=== PATIENT | female | born 1980 | race Caucasian/White ===

== ENCOUNTER 2018-08-21 22:10 | Inpatient (IN) | payer MEDICARE, MEDICAID ==
[2018-08-21] MEDS ORDERED: Ondansetron 4 MG/2 ML SDV IVPUSH ONE (22:34)
[2018-08-21] MEDS ORDERED: Sodium Chloride 0.9% 1,000 ML IV ONE (22:34)
[2018-08-21] MEDS ORDERED: HYDROmorphone 1 MG/ML Syringe IVPUSH ONE (22:34)
[2018-08-21] MEDS ORDERED: Ibuprofen 600 MG Tab PO ONE (22:39)
--- NOTE | 2018-08-21 22:51 | EDM.PDOC ---
ED HPI GENERAL MEDICAL PROBLEM - General Chief Complaint: General Stated Complaint: FEVER Time Seen by Provider: 08/21/18 22:33 Source of Information: Reports: Patient, EMS, Provider History Limitations: Reports: No Limitations - History of Present Illness INITIAL COMMENTS - FREE TEXT/NARRATIVE: Patient is a 38-year-old female who resides at [facility] and presents to the emergency Department this evening via EMS secondary to fever and abdominal pain. Per patient, she says that abdominal pain and fever has been on and off for 3 days. Patient has an indwelling suprapubic catheter secondary to paraplegic condition and nurse's notes show that urine was dark in color and cloudy earlier today. I discussed case with Trish Cardenas, nurse practitioner at [facility] for transfer to the ER and for continuity of care. Patient denies chest pain, shortness of breath, or bowel changes. Onset: Gradual Onset Date: 08/18/18 Duration: Day(s): Location: Reports: Abdomen Quality: Reports: Ache Severity: Mild Improves with: Reports: None Worsens with: Reports: None Associated Symptoms: Reports: Fever/Chills, Nausea/Vomiting Treatments FENDER REPAIRER: Reports: Acetaminophen Generalized Pain Score (Numeric/FACES): 7 - Related Data Allergies Allergy/AdvReac Type Severity Reaction Status Date / Time contrast dye Allergy Cannot Uncoded 08/21/18 23:04 Remember Home Meds: Home Meds fentaNYL [Fentanyl] 25 patch IDERM ASDIRECTED 11/05/16 [History] Ciprofloxacin HCl [Cipro] 500 mg PO BID 6 Days #12 tablet 12/05/17 [Rx] Nitrofurantoin Monohyd/M-Cryst [Macrobid 100 mg Capsule] 100 mg PO BID 6 Days # 12 capsule 01/03/18 [Rx] Past Medical History Gastrointestinal History: Reports: GERD, Hemorrhoids, Hepatitis, Other (See Below) Other Gastrointestinal History: neurogenic bowel, Hepatitis C Genitourinary History: Reports: Other (See Below) Other Genitourinary History: SP cath. neuromuscular dysfunction of bladder Musculoskeletal History: Reports: Other (See Below) Other Musculoskeletal History: paraplegia Neurological History: Reports: Other (See Below) Other Neuro History: Paraplegic Psychiatric History: Reports: ADHD, Anxiety, PTSD, Schizophrenia, Other (See Below) Other Psychiatric History: personality disorder Endocrine/Metabolic History: Reports: Diabetes, Type II, Obesity/BMI 30+ - Infectious Disease History Infectious Disease History: Reports: Hepatitis C - Past Surgical History Female Surgical History: Reports: Suprapubic Catheter Placement ED ROS GENERAL - Review of Systems Review Of Systems: ROS reveals no pertinent complaints other than HPI. Constitutional: Reports: Fever, Chills HEENT: Reports: No Symptoms Respiratory: Reports: No Symptoms Cardiovascular: Reports: No Symptoms Endocrine: Reports: No Symptoms GI/Abdominal: Reports: Abdominal Pain : Reports: Hematuria Musculoskeletal: Reports: No Symptoms Skin: Reports: No Symptoms Neurological: Reports: No Symptoms Psychiatric: Reports: No Symptoms Hematologic/Lymphatic: Reports: No Symptoms Immunologic: Reports: No Symptoms ED EXAM, GI/ABD - Physical Exam Exam: See Below Exam Limited By: No Limitations General Appearance: Alert, WD/WN, No Apparent Distress Throat/Mouth: Normal Inspection, Normal Oropharynx, No Airway Compromise Head: Atraumatic, Normocephalic Neck: Normal Inspection Respiratory/Chest: No Respiratory Distress, Lungs Clear, Normal Breath Sounds, No Accessory Muscle Use, Chest Non-Tender Cardiovascular: Regular Rate, Rhythm, No Murmur GI/Abdominal Exam: Normal Bowel Sounds, No Abnormal Bruit, Distended (Mildly), Tender (Suprapubic), Other (Has suprapubic catheter). No: Guarding, Rigid, Rebound Back Exam: Paraspinal Tenderness (Chronic nature) Extremities: Other (Patient is a paraplegic) Neurological: Alert, Oriented, Normal Cognition Psychiatric: Normal Affect, Normal Mood Skin Exam: Warm, Dry, Intact, Normal Color, No Rash Lymphatic: No Adenopathy Course - Vital Signs Last Recorded V/S: Last Vital Signs Temp 101.5 F H 08/21/18 22:45 Pulse 91 08/21/18 23:36 Resp 16 08/21/18 23:36 BP 126/50 L 08/21/18 23:36 Pulse Ox 97 08/21/18 23:15 - Orders/Labs/Meds Orders: Active Orders 24 hr Category Date Time Status Abdomen Pelvis w Cont [CT] Stat Exams 08/21/18 23:14 Ordered CULTURE URINE [RM] Stat Lab 08/21/18 22:55 Received Labs: Laboratory Tests 08/21/18 08/21/18 08/21/18 Range/Units 22:27 22:27 22:27 WBC 18.51 H (5.00-10.00) 10^3/uL RBC 4.24 (3.80-5.50) 10^6/uL Hgb 12.4 (12.0-16.0) g/dL Hct 38.6 (37.0-47.0) % MCV 91.0 (82.0-92.0) fL MCH 29.2 (27.0-31.0) pg MCHC 32.1 (32.0-36.0) g/dL RDW 14.2 (11.5-14.5) % Plt Count 256 (150-400) 10^3/uL MPV 10.0 (7.4-10.4) fL Immature Gran % (Auto) 0.3 (0.0-5.0) % Neut % (Auto) 84.3 H (50.0-70.0) % Lymph % (Auto) 7.6 L (20.0-40.0) % Swift % (Auto) 7.2 (2.0-8.0) % Eos % (Auto) 0.5 L (1.0-3.0) % Baso % (Auto) 0.1 (0.0-1.0) % Immature Gran # (Auto) 0.06 (0.00-0.50) 10^3/uL Neut # (Auto) 15.59 H (2.50-7.00) 10^3/uL Lymph # (Auto) 1.41 (1.00-4.00) 10^3/uL Swift # (Auto) 1.34 H (0.10-0.80) 10^3/uL Eos # (Auto) 0.09 L (0.10-0.30) 10^3/uL Baso # (Auto) 0.02 (0.00-0.10) 10^3/uL Sodium 134 L (136-145) mmol/L Potassium 4.1 (3.3-5.3) mmol/L Chloride 98 (98-115) mmol/L Carbon Dioxide 27.1 (21.0-32.0) mmol/L Anion Gap 13.0 (5-15) mmol/L BUN 10 (6-25) mg/dL Creatinine 0.96 (0.51-1.17) mg/dL Est Cr Clr Drug Dosing TNP Estimated GFR (MDRD) > 60 mL/min Glucose 165 H (75 - 99) mg/dL Lactic Acid 1.5 (0.4-2.0) mmol/L Calcium 8.8 (8.7-10.3) mg/dL Total Bilirubin 0.3 (0.2-1.0) mg/dL AST 9 L (15-37) U/L ALT 15 (12-78) U/L Alkaline Phosphatase 50 (46-116) IU/L Total Protein 7.5 (6.4-8.2) g/dL Albumin 2.74 L (3.00-4.80) g/dL Specimen Type Urine Color (YELLOW) Urine Appearance (CLEAR) Urine pH (5.0-9.0) Ur Specific Fowler (1.005-1.030) Urine Protein (NEGATIVE) mg/dL Urine Glucose (UA) (NEGATIVE) mg/dL Urine Ketones (NEGATIVE) mg/dL Urine Occult Blood (NEGATIVE) Urine Nitrite (NEGATIVE) Urine Bilirubin (NEGATIVE) Urine Urobilinogen (0.2-1.0) E.U./dL Ur Leukocyte Esterase (NEGATIVE) Urine RBC (0-5) /HPF Urine WBC (0-5) /HPF Amorphous Sediment (0/HPF) /HPF Urine Bacteria (NONE TO FEW) /HPF 08/21/18 Range/Units 22:55 WBC (5.00-10.00) 10^3/uL RBC (3.80-5.50) 10^6/uL Hgb (12.0-16.0) g/dL Hct (37.0-47.0) % MCV (82.0-92.0) fL MCH (27.0-31.0) pg MCHC (32.0-36.0) g/dL RDW (11.5-14.5) % Plt Count (150-400) 10^3/uL MPV (7.4-10.4) fL Immature Gran % (Auto) (0.0-5.0) % Neut % (Auto) (50.0-70.0) % Lymph % (Auto) (20.0-40.0) % Swift % (Auto) (2.0-8.0) % Eos % (Auto) (1.0-3.0) % Baso % (Auto) (0.0-1.0) % Immature Gran # (Auto) (0.00-0.50) 10^3/uL Neut # (Auto) (2.50-7.00) 10^3/uL Lymph # (Auto) (1.00-4.00) 10^3/uL Swift # (Auto) (0.10-0.80) 10^3/uL Eos # (Auto) (0.10-0.30) 10^3/uL Baso # (Auto) (0.00-0.10) 10^3/uL Sodium (136-145) mmol/L Potassium (3.3-5.3) mmol/L Chloride (98-115) mmol/L Carbon Dioxide (21.0-32.0) mmol/L Anion Gap (5-15) mmol/L BUN (6-25) mg/dL Creatinine (0.51-1.17) mg/dL Est Cr Clr Drug Dosing Estimated GFR (MDRD) mL/min Glucose (75 - 99) mg/dL Lactic Acid (0.4-2.0) mmol/L Calcium (8.7-10.3) mg/dL Total Bilirubin (0.2-1.0) mg/dL AST (15-37) U/L ALT (12-78) U/L Alkaline Phosphatase (46-116) IU/L Total Protein (6.4-8.2) g/dL Albumin (3.00-4.80) g/dL Specimen Type Urinsp Urine Color Light yellow (YELLOW) Urine Appearance Cloudy H (CLEAR) Urine pH 8.5 (5.0-9.0) Ur Specific Fowler 1.015 (1.005-1.030) Urine Protein >=300 H (NEGATIVE) mg/dL Urine Glucose (UA) Negative (NEGATIVE) mg/dL Urine Ketones Negative (NEGATIVE) mg/dL Urine Occult Blood Large H (NEGATIVE) Urine Nitrite Positive H (NEGATIVE) Urine Bilirubin Negative (NEGATIVE) Urine Urobilinogen 0.2 (0.2-1.0) E.U./dL Ur Leukocyte Esterase Large H (NEGATIVE) Urine RBC 30-40 H (0-5) /HPF Urine WBC Semi-packed (0-5) /HPF Amorphous Sediment Many H (0/HPF) /HPF Urine Bacteria Many H (NONE TO FEW) /HPF Meds: Medications Discontinued Medications Generic Name Dose Route Start Last Admin Trade Name Torin PRN Reason Stop Dose Admin Hydromorphone HCl 0.5 mg 08/21/18 22:34 08/21/18 22:47 Dilaudid IVPUSH 08/21/18 22:35 0.5 mg ONETIME ONE Administration Sodium Chloride 1,000 mls @ 999 mls/hr 08/21/18 22:34 08/21/18 22:47 Normal Saline IV 08/21/18 23:34 999 mls/hr .BOLUS ONE Administration Ibuprofen 600 mg 08/21/18 22:39 08/21/18 22:45 Motrin PO 08/21/18 22:40 600 mg ONETIME ONE Administration Ondansetron HCl 4 mg 08/21/18 22:34 08/21/18 23:06 Zofran IVPUSH 08/21/18 22:35 4 mg ONETIME ONE Administration - Radiology Interpretation Free Text/Narrative:: CT abdomen and pelvis without contrast shows mildly dilated loops of small intestine, moderate distention of the colon, normal appendix, cystitis, nonobstructing bladder stones, mildly obstructed stone on the left renal pelvis, - Re-Assessments/Exams Free Text/Narrative Re-Assessment/Exam: 08/22/18 01:19 Patient resting comfortably, discomfort relieved. Discussed case with Trish Cardenas, nurse practitioner at [facility]. Patient will be admitted inpatient and followed. Patient given 1 g Rocephin IV. Departure - Departure Time of Disposition: 01:19 Disposition: Admitted As Inpatient 64 Condition: Fair Clinical Impression: UTI, Urinary tract infectious disease, Complicated UTI (urinary tract infection ), Kidney stone, Ileus - Discharge Information Referrals: Michelle Marcelo MD [Primary Care Provider] - Forms: ED Department Discharge - My Orders Last 24 Hours: My Active Orders 08/21/18 22:55 CULTURE URINE [RM] Stat 08/21/18 23:14 Abdomen Pelvis w Cont [CT] Stat - Assessment/Plan Last 24 Hours: My Active Orders 08/21/18 22:55 CULTURE URINE [RM] Stat 08/21/18 23:14 Abdomen Pelvis w Cont [CT] Stat Assessment:: UTI Plan: Admit inpatient to [facility]
[2018-08-21 23:01] LABS: SODIUM,NA 134 mmol/L (136-145)
[2018-08-21 23:02] LABS: CHLORIDE,CL 98 mmol/L (98-115)
[2018-08-22] MEDS ORDERED: cefTRIAXone 1 GM Vial IVPUSH ONE (01:14)
[2018-08-22] MEDS: Sodium Chloride 0.9% 1,000 ML IV SCH ×3 (02:46→19:18)
--- NOTE | 2018-08-22 08:40 | CT ---
[id number] CT/CT Abdomen Pelvis W IV EXAM: ABDOMEN AND PELVIS CT WITH CONTRAST INDICATION: Abdominal pain. COMPARISON: None. DISCUSSION: Suprapubic catheter. The urinary bladder appears thick-walled suggesting underlying cystitis, correlate with urinalysis. There are multiple large calculi in the bladder with a labor service representative stone measuring about 3.9 x 1.6 x 2.6 cm. There is mild to moderate dilation of both urinary collecting systems and within the left renal pelvis there is a 2.8 x 1.1 cm stone. This may partially obstruct, but evaluation for obstruction is somewhat limited given diffuse ureteral dilation. There are few additional small nonobstructing calculi in the lower pole of the left kidney. No right-sided collecting system calculi. Prominent colonic stool volume. Mild induration of the subcutaneous tissues along the upper aspect of the intragluteal cleft, correlate with evidence of cellulitis. Partially imaged bilateral posterior fusion in the thoracic spine. Mild pectus excavatum. The liver, gallbladder, spleen, pancreas, adrenal glands, small bowel and appendix are normal in appearance. No adenopathy or free air. Minimal free fluid in the pelvis may be physiologic. IMPRESSION: 1. The urinary bladder contains a suprapubic catheter and is mildly thick-walled, correlate with urinalysis to evaluate for cystitis. The bladder is filled by multiple large calculi and there is mild dilation of both urinary collecting systems. 2. 2.8 x 1.1 cm partially obstructing left renal pelvis calculus. Ervin Hines MD 08/22/18 0839 Thank you for allowing us to participate in the care of your patient.
[2018-08-22] MEDS ORDERED: Nicotine Polacrilex 4 MG Gum PO PRN (09:41)
[2018-08-22] MEDS ORDERED: buPROPion 300 MG Tab.ER PO SCH (09:45)
[2018-08-22] MEDS ORDERED: Zinc Oxide 20% Oint 56.7 GM Tube TOP SCH (10:15)
[2018-08-22] MEDS ORDERED: Gabapentin 100 MG Cap PO SCH ×4 (10:15→23:00)
[2018-08-22] MEDS ORDERED: Ondansetron 4 MG/2 ML SDV IVPUSH PRN (10:22)
[2018-08-22] MEDS ORDERED: Ibuprofen 600 MG Tab PO PRN (10:26)
[2018-08-22] MEDS ORDERED: GABAPENTIN 1200 MG PO SCH (10:45)
[2018-08-22] MEDS: LORazepam 0.5 MG Tab PO SCH ×4 (10:57→22:16)
[2018-08-22] MEDS: tiZANidine 4 MG Tab PO SCH ×3 (10:58→22:16)
[2018-08-22] MEDS ORDERED: Psyllium Husk Powder Sugar Free 5.85 GM Packet PO SCH (11:45)
[2018-08-22] MEDS ORDERED: buPROPion 150 MG Tab.SR PO SCH (12:00)
[2018-08-22] MEDS: Multivitamins with Minerals/Iron/Folic Acid/Lycopene Tab PO SCH (12:05)
[2018-08-22] MEDS: Lisinopril 5 MG Tab PO SCH (12:05)
[2018-08-22] MEDS: Ondansetron 4 MG Tab.DIS PO SCH (12:05)
[2018-08-22] MEDS: Tamsulosin 0.4 MG Cap.ER PO SCH (12:05)
--- NOTE | 2018-08-22 12:05 | PCM.HP ---
H&P History of Present Illness - General Date of Service: 08/22/18 Admit Problem/Dx: Admission Diagnosis/Problem Admission Diagnosis/Problem Cystitis Source of Information: Patient, M[facility] Records, Old Records, Provider, RN History Limitations: Reports: No Limitations - History of Present Illness Initial Comments - Free Text/Narative: This is a 38 year old female who resides at the [facility] in [place], [place] who developed a fever and low back pain about 3 days ago. [facility]ent[facility] reported fevers of low-grade up to 103 degrees F intermittently for the past 3 days. Patient has a suprapubic catheter in place due to being a paraplegia and was noted to have darker colored urine. She was transferred to the ED via ambulance for further evaluation. She was found to have a UTI and was admitted for further treatment and monitoring. Generalized Pain Score (Numeric/FACES): 3 - Related Data Allergies/Adverse Reactions: Allergies Allergy/AdvReac Type Severity Reaction Status Date / Time contrast dye Allergy Cannot Uncoded 08/21/18 23:04 Remember Home Medications: Home Meds Acetaminophen 650 mg PO Q4HR PRN 08/22/18 [History] Ascorbate Calcium [Vitamin C] 500 mg PO DAILY 08/22/18 [History] Bisacodyl [Biscolax] 1,025.97 mg PO DAILY 08/22/18 [History] Calcium Carbonate/Vitamin D3 [Calcium 600 + Vit D 200] 1 each PO BID 08/22/18 [ History] Cranberry 400 mg PO Q8HR 08/22/18 [History] Dextran 70/Hypromellose [Artificial Tears] 1 each OP DAILY 08/22/18 [History] Diclofenac Sodium [Voltaren 1%] 1 applic TP QID 08/22/18 [History] Gabapentin [Neurontin] 1,200 mg PO BID 08/22/18 [History] Gabapentin [Neurontin] 800 mg PO BID 08/22/18 [History] LORazepam 0.25 mg PO BEDTIME 08/22/18 [History] LORazepam [Ativan] 0.5 mg PO Q8HR 08/22/18 [History] Lisinopril [Prinivil] 2.5 mg PO DAILY 08/22/18 [History] Methyl Salicylate/Menthol [Muscle Rub] 85 gm TP ASDIRECTED PRN 08/22/18 [History ] Methylcellulose [Fiber] 500 mg PO DAILY 08/22/18 [History] Multivit with Iron,Minerals [Spectravite Senior] 1 tab PO DAILY 08/22/18 [ History] Nicotine Polacrilex [Nicorette] 4 mg BC Q6HR PRN 08/22/18 [History] Omeprazole 20 mg PO DAILY 08/22/18 [History] Ondansetron HCl [Zofran] 4 mg PO DAILY 08/22/18 [History] Sennosides [Senna] 25.8 mg PO DAILY 08/22/18 [History] Sertraline [Zoloft] 150 mg PO DAILY 08/22/18 [History] Zinc Oxide 56.7 gm TP WEEKLY 08/22/18 [History] atorvaSTATin [Lipitor] 40 mg PO DAILY 08/22/18 [History] buPROPion HCl [Wellbutrin Xl] 300 mg PO DAILY 08/22/18 [History] fentaNYL [Duragesic] 150 mg TOP ASDIRECTED 08/22/18 [History] metFORMIN [Glucophage] 500 mg PO BIDMEALS 08/22/18 [History] tiZANidine [Zanaflex] 4 mg PO Q8H 08/22/18 [History] Past Medical History Gastrointestinal History: Reports: GERD, Hemorrhoids, Hepatitis, Other (See Below) Other Gastrointestinal History: neurogenic bowel, Hepatitis C Genitourinary History: Reports: Other (See Below) Other Genitourinary History: SP cath. neuromuscular dysfunction of bladder Musculoskeletal History: Reports: Other (See Below) Other Musculoskeletal History: paraplegia Neurological History: Reports: Other (See Below) Other Neuro History: Paraplegic Psychiatric History: Reports: ADHD, Anxiety, PTSD, Schizophrenia, Other (See Below) Other Psychiatric History: personality disorder Endocrine/Metabolic History: Reports: Diabetes, Type II, Obesity/BMI 30+ - Infectious Disease History Infectious Disease History: Reports: Hepatitis C - Past Surgical History Female Surgical History: Reports: Suprapubic Catheter Placement Social & Family History - Family History : Reports: Renal Calculus (sister) Oncologic: Reports: Breast (maternal aunt), Prostate (maternal grandfather and maternal uncle) - Tobacco Use Smoking Status *Q: Former Smoker Used Tobacco, but Quit: Yes Month/Year Tobacco Last Used: 2011 Tobacco Use Comment: Pt quit smoking about 7 years ago and uses nicotine gum several times per day currently. Second Hand Smoke Exposure: No - Caffeine Use Caffeine Use: Reports: Coffee, Soda, Tea - Recreational Drug Use Recreational Drug Use: No H&P Review of Systems - Review of Systems: Review Of Systems: See Below General: Reports: Fever, Chills, Malaise, Weakness, Fatigue HEENT: Reports: Ear Pain, Headaches. Denies: Sinus Congestion, Sore Throat Pulmonary: Denies: Shortness of Breath, Cough Cardiovascular: Denies: Chest Pain, Edema Gastrointestinal: Reports: Abdominal Pain, Nausea. Denies: Constipation, Diarrhea, Vomiting Genitourinary: Reports: No Symptoms Musculoskeletal: Reports: Neck Pain, Back Pain (low back) Skin: Reports: Wound (left coccyx) Psychiatric: Reports: Anxiety Neurological: Reports: Headache. Denies: Dizziness Exam - Exam Exam: See Below - Vital Signs Vital Signs: Last Vital Signs Temp 97.5 F 08/22/18 06:59 Pulse 77 08/22/18 06:59 Resp 18 08/22/18 06:59 BP 93/52 L 08/22/18 06:59 Pulse Ox 96 08/22/18 06:59 Weight: 226 lb 3 oz - Exam Quality Assessment: Urinary Catheter (suprapubic-skin around site appears pink without erythema or drainage; yellow urine with sediment present). No: Supplemental Oxygen General: Alert, Oriented (x3), Cooperative, Mild Distress HEENT: Conjunctiva Clear, Hearing Intact, Mucosa Moist & Thomas, Nares Patent, Posterior Pharynx Clear, Pupils Equal, TMs Clear Neck: Supple, Trachea Midline. No: Lymphadenopathy Lungs: Clear to Auscultation, Normal Respiratory Effort Cardiovascular: Regular Rate, Regular Rhythm, Normal S1, Normal S2. No: Systolic Murmur, Diastolic Murmur GI/Abdominal Exam: Normal Bowel Sounds, Soft, Non-Tender, No Distention Extremities: No Pedal Edema Skin: Warm, Dry, Other (mild erythema noted to coccyx and left upper buttock, no open wounds) Neuro Extensive - Mental Status: Alert, Oriented x3, Normal Mood/Affect, Normal Cognition, Memory Intact Psychiatric: Alert, Normal Affect, Normal Mood - Patient Data Lab Results Last 24 hrs: Laboratory Results - last 24 hr 08/21/18 08/21/18 08/21/18 Range/Units 22:27 22:27 22:27 WBC 18.51 H (5.00-10.00) 10^3/uL RBC 4.24 (3.80-5.50) 10^6/uL Hgb 12.4 (12.0-16.0) g/dL Hct 38.6 (37.0-47.0) % MCV 91.0 (82.0-92.0) fL MCH 29.2 (27.0-31.0) pg MCHC 32.1 (32.0-36.0) g/dL RDW 14.2 (11.5-14.5) % Plt Count 256 (150-400) 10^3/uL MPV 10.0 (7.4-10.4) fL Immature Gran % (Auto) 0.3 (0.0-5.0) % Neut % (Auto) 84.3 H (50.0-70.0) % Lymph % (Auto) 7.6 L (20.0-40.0) % [place] % (Auto) 7.2 (2.0-8.0) % Eos % (Auto) 0.5 L (1.0-3.0) % Baso % (Auto) 0.1 (0.0-1.0) % Immature Gran # (Auto) 0.06 (0.00-0.50) 10^3/uL Neut # (Auto) 15.59 H (2.50-7.00) 10^3/uL Lymph # (Auto) 1.41 (1.00-4.00) 10^3/uL [place] # (Auto) 1.34 H (0.10-0.80) 10^3/uL Eos # (Auto) 0.09 L (0.10-0.30) 10^3/uL Baso # (Auto) 0.02 (0.00-0.10) 10^3/uL Sodium 134 L (136-145) mmol/L Potassium 4.1 (3.3-5.3) mmol/L Chloride 98 (98-115) mmol/L Carbon Dioxide 27.1 (21.0-32.0) mmol/L Anion Gap 13.0 (5-15) mmol/L BUN 10 (6-25) mg/dL Creatinine 0.96 (0.51-1.17) mg/dL Est Cr Clr Drug Dosing TNP Estimated GFR (MDRD) > 60 mL/min Glucose 165 H (75 - 99) mg/dL Lactic Acid 1.5 (0.4-2.0) mmol/L Calcium 8.8 (8.7-10.3) mg/dL Total Bilirubin 0.3 (0.2-1.0) mg/dL AST 9 L (15-37) U/L ALT 15 (12-78) U/L Alkaline Phosphatase 50 (46-116) IU/L Total Protein 7.5 (6.4-8.2) g/dL Albumin 2.74 L (3.00-4.80) g/dL Specimen Type Urine Color (YELLOW) Urine Appearance (CLEAR) Urine pH (5.0-9.0) Ur Specific [place] (1.005-1.030) Urine Protein (NEGATIVE) mg/dL Urine Glucose (UA) (NEGATIVE) mg/dL Urine Ketones (NEGATIVE) mg/dL Urine Occult Blood (NEGATIVE) Urine Nitrite (NEGATIVE) Urine Bilirubin (NEGATIVE) Urine Urobilinogen (0.2-1.0) E.U./dL Ur Leukocyte Esterase (NEGATIVE) Urine RBC (0-5) /HPF Urine WBC (0-5) /HPF Amorphous Sediment (0/HPF) /HPF Urine Bacteria (NONE TO FEW) /HPF 08/21/18 Range/Units 22:55 WBC (5.00-10.00) 10^3/uL RBC (3.80-5.50) 10^6/uL Hgb (12.0-16.0) g/dL Hct (37.0-47.0) % MCV (82.0-92.0) fL MCH (27.0-31.0) pg MCHC (32.0-36.0) g/dL RDW (11.5-14.5) % Plt Count (150-400) 10^3/uL MPV (7.4-10.4) fL Immature Gran % (Auto) (0.0-5.0) % Neut % (Auto) (50.0-70.0) % Lymph % (Auto) (20.0-40.0) % [place] % (Auto) (2.0-8.0) % Eos % (Auto) (1.0-3.0) % Baso % (Auto) (0.0-1.0) % Immature Gran # (Auto) (0.00-0.50) 10^3/uL Neut # (Auto) (2.50-7.00) 10^3/uL Lymph # (Auto) (1.00-4.00) 10^3/uL [place] # (Auto) (0.10-0.80) 10^3/uL Eos # (Auto) (0.10-0.30) 10^3/uL Baso # (Auto) (0.00-0.10) 10^3/uL Sodium (136-145) mmol/L Potassium (3.3-5.3) mmol/L Chloride (98-115) mmol/L Carbon Dioxide (21.0-32.0) mmol/L Anion Gap (5-15) mmol/L BUN (6-25) mg/dL Creatinine (0.51-1.17) mg/dL Est Cr Clr Drug Dosing Estimated GFR (MDRD) mL/min Glucose (75 - 99) mg/dL Lactic Acid (0.4-2.0) mmol/L Calcium (8.7-10.3) mg/dL Total Bilirubin (0.2-1.0) mg/dL AST (15-37) U/L ALT (12-78) U/L Alkaline Phosphatase (46-116) IU/L Total Protein (6.4-8.2) g/dL Albumin (3.00-4.80) g/dL Specimen Type Urinsp Urine Color Light yellow (YELLOW) Urine Appearance Cloudy H (CLEAR) Urine pH 8.5 (5.0-9.0) Ur Specific [place] 1.015 (1.005-1.030) Urine Protein >=300 H (NEGATIVE) mg/dL Urine Glucose (UA) Negative (NEGATIVE) mg/dL Urine Ketones Negative (NEGATIVE) mg/dL Urine Occult Blood Large H (NEGATIVE) Urine Nitrite Positive H (NEGATIVE) Urine Bilirubin Negative (NEGATIVE) Urine Urobilinogen 0.2 (0.2-1.0) E.U./dL Ur Leukocyte Esterase Large H (NEGATIVE) Urine RBC 30-40 H (0-5) /HPF Urine WBC Semi-packed (0-5) /HPF Amorphous Sediment Many H (0/HPF) /HPF Urine Bacteria Many H (NONE TO FEW) /HPF Result Diagrams: 08/21/18 22:27 08/21/18 22:27 Roddy Results Last 24 hrs: Microbiology 08/21/18 22:55 Urine Culture - Final Urine, Suprapubic Bladder Asp Problem List Initiated/Reviewed/Updated: Yes Orders Last 24hrs: Active Orders 24 hr Category Date Time Status Patient Status [ADT] Routine ADT 08/22/18 01:17 Ordered Accu Check [Blood Glucose Check, Bedside] [RC] BIDAC Care 08/22/18 11:31 Active Communication Order [RC] DAILY Care 08/22/18 11:43 Active Intake and Output [RC] 1400,2200,0600 Care 08/22/18 09:41 Active Oxygen Therapy [RC] PRN Care 08/22/18 01:17 Active Up With Assistance [RC] ASDIRECTED Care 08/22/18 09:46 Active VTE/DVT Education [RC] PER UNIT ROUTINE Care 08/22/18 01:17 Active Vital Signs [RC] 0300,0700,1100,1500,1900,2300 Care 08/22/18 01:17 Active ADA Diabetic [[place] [employer] Diet] [DIET Diet 08/22/18 Breakfast Active ] BMP [BASIC METABOLIC PANEL,BMP] [CHEM] AM Lab 08/23/18 05:11 Ordered CBC WITH AUTO DIFF [HEME] AM Lab 08/23/18 05:11 Ordered URINE ID [MREF] Stat Lab 08/21/18 22:55 Received Acetaminophen [Tylenol] Med 08/22/18 09:41 Active 650 mg PO Q4H PRN Ascorbic Acid [Vitamin C] Med 08/22/18 10:00 Active 500 mg PO DAILY Calcium Citrate/Vitamin D3 [Calcium Citrate + D] Med 08/22/18 10:00 Active 2 tab PO BID Carboxymethylcellulose Sodium [Refresh Tears 0.5%] Med 08/22/18 10:15 Active 0 ml EYEBOTH DAILY Diclofenac Sodium [Voltaren 1% Gel] Med 08/22/18 13:00 Active 0 gm TOP QID Docusate Sodium/Sennosides [Senna Plus] Med 08/22/18 10:00 Active 3 tab PO DAILY FA/Lycopene/Lut/MV,Ca,Iron,Min [Centrum] Med 08/22/18 10:15 Active 1 tab PO DAILY Gabapentin [Neurontin] Med 08/22/18 16:00 Active 1,200 mg PO BID@1600,2000 Gabapentin [Neurontin] Med 08/22/18 23:00 Active 800 mg PO BID@0700,2300 Ibuprofen [Motrin] Med 08/22/18 10:26 Active 600 mg PO Q6H PRN LORazepam [Ativan] Med 08/22/18 21:00 Active 0.25 mg PO BEDTIME LORazepam [Ativan] Med 08/22/18 09:41 Active 0.5 mg PO Q8HR Lisinopril [Prinivil] Med 08/22/18 10:00 Active 2.5 mg PO DAILY Menthol/Methyl Salicylate [Bengay Greaseless Cream] Med 08/22/18 09:41 Active 0 gm TOP ASDIRECTED PRN Omeprazole Med 08/22/18 09:45 Active 20 mg PO ACBREAKFAST Ondansetron [Zofran ODT] Med 08/22/18 10:00 Active 4 mg PO DAILY Ondansetron [Zofran] Med 08/22/18 10:22 Active 4 mg IVPUSH Q6H PRN Sertraline [Zoloft] Med 08/22/18 10:00 Active 150 mg PO DAILY Sodium Chloride 0.9% [Normal Saline] 1,000 ml Med 08/22/18 01:30 Active IV ASDIRECTED Tamsulosin [Flomax] Med 08/22/18 11:30 Active 0.4 mg PO DAILY Zinc Oxide Med 08/22/18 10:15 Active 0 gm TOP Q7D atorvaSTATin [Lipitor] Med 08/22/18 09:45 Active 40 mg PO DAILY buPROPion [Wellbutrin XL] Med 08/22/18 09:45 Active 300 mg PO DAILY cefTRIAXone [Rocephin] Med 08/23/18 01:00 Active 1 gm IVPUSH Q24H tiZANidine [Zanaflex] Med 08/22/18 09:45 Active 4 mg PO Q8HR Code Status [Resuscitation Status] Routine Resus Stat 08/22/18 10:23 Ordered Medication Orders Acetaminophen (Tylenol) 650 mg PO Q4H PRN PRN Reason: Pain Artificial Tears (Refresh Tears 0.5%) 0 ml EYEBOTH DAILY [facility] Ascorbic Acid (Vitamin C) 500 mg PO DAILY [facility] Atorvastatin Calcium (Lipitor) 40 mg PO DAILY [facility] Bupropion HCl (Wellbutrin Xl) 300 mg PO DAILY [facility] Calcium Citrate (Calcium Citrate + D) 2 tab PO BID [facility] Ceftriaxone Sodium (Rocephin) 1 gm IVPUSH Q24H [facility] Diclofenac Sodium (Voltaren 1% Gel) 0 gm TOP QID [facility] Gabapentin (Neurontin) 800 mg PO BID@0700,2300 [facility] Gabapentin (Neurontin) 1,200 mg PO BID@1600,2000 [facility] Sodium Chloride (Normal Saline) 1,000 mls @ 125 mls/hr IV ASDIRECTED [facility] Last Admin: 08/22/18 11:11 Dose: 125 mls/hr Infusion: 08/22/18 10:46 Dose: 125 mls/hr Admin: 08/22/18 02:46 Dose: 125 mls/hr Ibuprofen (Motrin) 600 mg PO Q6H PRN PRN Reason: fever/pain Lisinopril (Prinivil) 2.5 mg PO DAILY [facility] Lorazepam (Ativan) 0.5 mg PO Q8HR [facility] Last Admin: 08/22/18 10:57 Dose: Lorazepam (Ativan) 0.25 mg PO BEDTIME [facility] Methyl Salicylate (Bengay Greaseless Cream) 0 gm TOP ASDIRECTED PRN PRN Reason: Pain Multi-Ingred Cream/Lotion/Oil/Oint (Zinc Oxide) 0 gm TOP Q7D [facility] Multivitamins/Minerals (Centrum) 1 tab PO DAILY [facility] Omeprazole (Omeprazole) 20 mg PO ACBREAKFAST [facility] Ondansetron HCl (Zofran Odt) 4 mg PO DAILY [facility] Ondansetron HCl (Zofran) 4 mg IVPUSH Q6H PRN PRN Reason: Nausea/Vomiting Last Admin: 08/22/18 11:02 Dose: 4 mg Senna/Docusate Sodium (Senna Plus) 3 tab PO DAILY [facility] Sertraline HCl (Zoloft) 150 mg PO DAILY [facility] Tamsulosin HCl (Flomax) 0.4 mg PO DAILY [facility] Stop: 08/26/18 11:31 Tizanidine HCl (Zanaflex) 4 mg PO Q8HR [facility] Last Admin: 08/22/18 10:58 Dose: Assessment/Plan Comment:: HPI: This is a 38 year old female who resides at the [facility] in [place], [place] who developed a fever and low back pain about 3 days ago. [facility] reported fevers of low-grade up to 103 degrees F intermittently for the past 3 days. Patient has a suprapubic catheter in place due to being a paraplegia and was noted to have darker colored urine. She was transferred to the ED via ambulance for further evaluation. She was found to have a UTI and was admitted for further treatment and monitoring. Pertinent ED work-up: WBC 18.5 with neutrophilia Na 134 Lactic acid 1.5 UA positive for nitrites, large leukocytes, and many bacteria Urine culture pending CT abd/pelvis: mildly thick walled urinary bladder representing cystitis; bladder filled with multiple large calculi with mild dilation of both urinary collecting systems; 2.8 x 1.1 cm partially obstructing left renal pelvis calculi NS 1 liter bolus Rocephin 1 gm IV x 1 Ibuprofen po and zofran IV x 1 Further work-up upon admission: Medication reconciliation Code status clarification. Patient elects to be a DNR. Primary assessment/plan: Acute cystitis. qSOFA 0. Urine culture showing gram + cocci and gram - rods. Continue rocephin 1 gm IV daily. NS at 125 mL/hr. CBC in AM. Nephrolithiasis of left kidney and bladder. 2.8 x 1.1 cm partially obstructing calculi in left renal pelvis with multiple large calculi in bladder. Creatinine 0.96. Flomax 0.4 mg daily to help pass the left renal stone. IVFs. She will need urology follow-up as outpatient. BMP in AM. Suprapubic catheter in place. Irrigate with NS 250 mL daily. Has had to have IR replace this in the past. Secondary assessment/plan: T2DM. Hold metformin due to CT scan. Accuchecks BID. ADA diet. Continue lisinopril 2.5 mg daily. A1c 5.2 (07/2018). HLD. LDL 55 (07/2018). Continue lipitor. Paraplegia, from the chest down. Rods in place from T1 to T10 due to suicide attempt about 6 years ago. Morbid obesity. Former smoker. [facility] used nicotine replacement gum [facility] at the [facility]. Will check if this is available in house and if not will apply nicotine patch. Depression. Continue wellbutrin and zoloft. Anxiety. Continue ativan. Schizophrenia. Followed by Dr. Brooks, psychiatrist, at [facility]. PTSD. History of drug/alcohol abuse. 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 Neuropathic pain. On gabapentin, tapering dose of fentanyl patch and tizanadine. Fibromyalgia syndrome. Followed by pain clinic. Thoracic back pain. Myofascial pain along incision. Reflux esophagitis. Continue omeprazole. Dry eyes. Refresh drops daily. DVT prophylaxis. Score 3. Lovenox 40 mg SQ daily. Overall plan: Continue with IV rocephin and IV fluids. Monitor hemodynamic status. Perform catheter/bladder irrigation. Repeat labs in AM.
[2018-08-22] MEDS: Ascorbic Acid 500 MG Tab PO SCH (12:06)
[2018-08-22] MEDS: Calcium Citrate/Vitamin D3 315 MG-250 Unit Tab PO SCH ×2 (12:06→20:52)
[2018-08-22] MEDS: Omeprazole 20 MG Cap.CR PO SCH (12:06)
[2018-08-22] MEDS: Sertraline 50 MG Tab PO SCH (12:06)
[2018-08-22] MEDS: atorvaSTATin 40 MG Tab PO SCH (12:06)
[2018-08-22] MEDS: Carboxymethylcellulose Sodium 0.5% Ophth Soln 15 ML Bottle EYEBOTH SCH (12:07)
[2018-08-22] MEDS: Enoxaparin 40 MG/0.4 ML Syringe SUBCUT SCH (13:27)
[2018-08-22] MEDS: Gabapentin 100 MG Cap PO SCH (13:28)
[2018-08-22] MEDS: Gabapentin 300 MG Cap PO SCH ×3 (13:28→19:17)
[2018-08-22] MEDS: buPROPion 150 MG Tab.SR PO SCH ×2 (13:28→20:54)
[2018-08-22] MEDS: Diclofenac Sodium 1% Gel 100 GM Tube TOP SCH ×3 (13:29→20:57)
[2018-08-22] MEDS: Nicotine 7 MG/24 Hr Patch TRDERM SCH (13:35)
[2018-08-22] MEDS: Acetaminophen 325 MG Tab PO PRN (13:41)
[2018-08-22] MEDS ORDERED: Cranberry Ext/C/L. Sporogenes Tab PO SCH (14:00)
[2018-08-22] MEDS ORDERED: Morphine 2 MG/ML Syringe IVPUSH STA (15:22)
[2018-08-22] MEDS ORDERED: fentaNYL 100 MCG/HR Transdermal Patch TRDERM SCH (16:00)
[2018-08-22] MEDS ORDERED: Gabapentin 300 MG Cap PO SCH ×2 (16:00→21:00)
[2018-08-22] MEDS ORDERED: fentaNYL 25 MCG/HR Transdermal Patch TRDERM SCH (16:15)
[2018-08-22] MEDS ORDERED: HYDROmorphone 1 MG/ML Syringe IVPUSH ONE (17:05)
[2018-08-23] MEDS: cefTRIAXone 1 GM Vial IVPUSH SCH (01:38)
[2018-08-23] MEDS: Sodium Chloride 0.9% 1,000 ML IV SCH (03:06)
[2018-08-23] MEDS: Ketorolac 30 MG/ML SDV IVPUSH PRN ×2 (03:09→12:12)
[2018-08-23] MEDS: METHYL SALICYLATE TOP PRN (03:31)
[2018-08-23] MEDS: MENTHOL TOP PRN (03:31)
[2018-08-23] MEDS: LORazepam 0.5 MG Tab PO SCH ×5 (05:55→21:45)
[2018-08-23] MEDS: tiZANidine 4 MG Tab PO SCH ×3 (05:56→21:09)
[2018-08-23] MEDS: Omeprazole 20 MG Cap.CR PO SCH (07:51)
[2018-08-23] MEDS: Gabapentin 300 MG Cap PO SCH ×4 (07:52→18:19)
[2018-08-23] MEDS: Gabapentin 100 MG Cap PO SCH ×2 (07:52→12:06)
[2018-08-23 07:59] LABS: ANION GAP 12.9 mmol/L (5-15); CHLORIDE,CL 105 mmol/L (98-115); SODIUM,NA 141 mmol/L (136-145)
[2018-08-23] MEDS: Multivitamins with Minerals/Iron/Folic Acid/Lycopene Tab PO SCH (08:00)
[2018-08-23] MEDS: Ondansetron 4 MG Tab.DIS PO SCH (08:00)
[2018-08-23] MEDS: atorvaSTATin 40 MG Tab PO SCH (08:00)
[2018-08-23] MEDS: Ascorbic Acid 500 MG Tab PO SCH (08:00)
[2018-08-23] MEDS: Tamsulosin 0.4 MG Cap.ER PO SCH (08:00)
[2018-08-23] MEDS: Calcium Citrate/Vitamin D3 315 MG-250 Unit Tab PO SCH ×2 (08:01→21:08)
[2018-08-23] MEDS: Carboxymethylcellulose Sodium 0.5% Ophth Soln 15 ML Bottle EYEBOTH SCH (08:01)
[2018-08-23] MEDS: Nicotine 7 MG/24 Hr Patch TRDERM SCH (08:01)
[2018-08-23] MEDS: Lisinopril 5 MG Tab PO SCH (08:03)
[2018-08-23] MEDS: buPROPion 150 MG Tab.SR PO SCH ×2 (08:03→21:08)
[2018-08-23] MEDS: Sertraline 50 MG Tab PO SCH (08:09)
[2018-08-23] MEDS: Diclofenac Sodium 1% Gel 100 GM Tube TOP SCH ×4 (08:10→21:10)
--- NOTE | 2018-08-23 09:08 | PCM.PN ---
- General Info Date of Service: 08/23/18 Subjective Update: Patient eating breakfast in bed on rounds. States she didn't sleep well last night due to multiple reasons. Thinks she may have passed the left kidney stone as she felt a "scraping" down her left back late yesterday. She has had what was thought to be a kidney stone about 2 years ago, but was not evaluated further for it. Patient reports her pain is improved and is minimal today. Scheduled medications yesterday were a bit behind her normal times, which likely contributed to increased pain. Functional Status: Reports: Pain Controlled, Tolerating Diet. Denies: New Symptoms - Review of Systems General: Reports: Fatigue (did not sleep well last night), Malaise. Denies: Fever, Chills HEENT: Reports: Headaches (frontal, mild) Pulmonary: Denies: Shortness of Breath Cardiovascular: Denies: Chest Pain Gastrointestinal: Denies: Abdominal Pain, Constipation, Decreased Appetite, Diarrhea, Nausea, Vomiting Genitourinary: Reports: No Symptoms Musculoskeletal: Reports: Back Pain (mid-back) Neurological: Reports: Headache (frontal, mild). Denies: Trouble Speaking Psychiatric: Reports: No Symptoms - Patient Data Vitals - Most Recent: Last Vital Signs Temp 97.0 F 08/23/18 06:45 Pulse 68 08/23/18 06:45 Resp 20 08/23/18 06:45 BP 94/59 L 08/23/18 08:03 Pulse Ox 97 08/23/18 06:45 Weight - Most Recent: 226 lb 3 oz I&O - Last 24 Hours: Intake & Output 08/22/18 08/23/18 08/23/18 22:59 06:59 14:59 Intake Total 968 2200 Output Total 600 1500 Balance 368 700 Lab Results Last 24 Hours: Laboratory Results - last 24 hr 08/23/18 08/23/18 Range/Units 07:10 07:10 WBC 9.11 (5.00-10.00) 10^3/uL RBC 3.20 L (3.80-5.50) 10^6/uL Hgb 9.4 L D (12.0-16.0) g/dL Hct 30.0 L (37.0-47.0) % MCV 93.8 H (82.0-92.0) fL MCH 29.4 (27.0-31.0) pg MCHC 31.3 L (32.0-36.0) g/dL RDW 14.4 (11.5-14.5) % Plt Count 229 (150-400) 10^3/uL MPV 10.4 (7.4-10.4) fL Immature Gran % (Auto) 0.2 (0.0-5.0) % Neut % (Auto) 65.4 (50.0-70.0) % Lymph % (Auto) 21.6 (20.0-40.0) % [place] % (Auto) 10.0 H (2.0-8.0) % Eos % (Auto) 2.6 (1.0-3.0) % Baso % (Auto) 0.2 (0.0-1.0) % Immature Gran # (Auto) 0.02 (0.00-0.50) 10^3/uL Neut # (Auto) 5.95 (2.50-7.00) 10^3/uL Lymph # (Auto) 1.97 (1.00-4.00) 10^3/uL [place] # (Auto) 0.91 H (0.10-0.80) 10^3/uL Eos # (Auto) 0.24 (0.10-0.30) 10^3/uL Baso # (Auto) 0.02 (0.00-0.10) 10^3/uL Sodium 141 (136-145) mmol/L Potassium 3.8 (3.3-5.3) mmol/L Chloride 105 (98-115) mmol/L Carbon Dioxide 26.9 (21.0-32.0) mmol/L Anion Gap 12.9 (5-15) mmol/L BUN 8 (6-25) mg/dL Creatinine 0.80 (0.51-1.17) mg/dL Est Cr Clr Drug Dosing 94.30 mL/min Estimated GFR (MDRD) > 60 mL/min Glucose 157 H (75 - 99) mg/dL Calcium 8.2 L (8.7-10.3) mg/dL Roddy Results Last 24 Hours: Microbiology 08/21/18 22:55 Urine Culture - Final Urine, Suprapubic Bladder Asp Med Orders - Current: Current Medications Acetaminophen (Tylenol) 650 mg PO Q4H PRN PRN Reason: Pain Last Admin: 08/22/18 13:41 Dose: 650 mg Artificial Tears (Refresh Tears 0.5%) 0 ml EYEBOTH DAILY [facility] Last Admin: 08/23/18 08:01 Dose: 1 drop Ascorbic Acid (Vitamin C) 500 mg PO DAILY [facility] Last Admin: 08/23/18 08:00 Dose: 500 mg Atorvastatin Calcium (Lipitor) 40 mg PO DAILY [facility] Last Admin: 08/23/18 08:00 Dose: 40 mg Bupropion HCl (Wellbutrin Sr) 150 mg PO BID [facility] Last Admin: 08/23/18 08:03 Dose: 150 mg Calcium Citrate (Calcium Citrate + D) 2 tab PO BID [facility] Last Admin: 08/23/18 08:01 Dose: 2 tab Ceftriaxone Sodium (Rocephin) 1 gm IVPUSH Q24H [facility] Last Admin: 08/23/18 01:38 Dose: 1 gm Diclofenac Sodium (Voltaren 1% Gel) 0 gm TOP QID [facility] Last Admin: 08/23/18 08:10 Dose: 1 applic Enoxaparin Sodium (Lovenox) 40 mg SUBCUT Q24H [facility] Last Admin: 08/22/18 13:27 Dose: 40 mg Fentanyl (Duragesic) 100 mcg TRDERM Q72H [facility] Last Admin: 08/22/18 16:34 Dose: 100 mcg Fentanyl (Duragesic) 25 mcg TRDERM Q72H [facility] Stop: 08/25/18 09:00 Last Admin: 08/22/18 16:36 Dose: 25 mcg Gabapentin (Neurontin) 1,200 mg PO 1600,1900 [facility] Last Admin: 08/22/18 19:17 Dose: 1,200 mg Gabapentin (Neurontin) 200 mg PO 0800,1200 [facility] Last Admin: 08/23/18 07:52 Dose: 200 mg Gabapentin (Neurontin) 600 mg PO 0800,1200 [facility] Last Admin: 08/23/18 07:52 Dose: 600 mg Ketorolac Tromethamine (Toradol) 30 mg IVPUSH Q6H PRN PRN Reason: Pain Last Admin: 08/23/18 03:09 Dose: 30 mg Lisinopril (Prinivil) 2.5 mg PO DAILY [facility] Last Admin: 08/23/18 08:03 Dose: 2.5 mg Lorazepam (Ativan) 0.5 mg PO Q8HR [facility] Last Admin: 08/23/18 05:55 Dose: 0.5 mg Lorazepam (Ativan) 0.25 mg PO BEDTIME [facility] Last Admin: 08/22/18 20:53 Dose: 0.25 mg Methyl Salicylate (Bengay Greaseless Cream) 0 gm TOP ASDIRECTED PRN PRN Reason: Pain Last Admin: 08/23/18 03:31 Dose: 1 applic Multi-Ingred Cream/Lotion/Oil/Oint (Zinc Oxide) 0 gm TOP Q7D [facility] Last Admin: 08/22/18 12:15 Dose: Not Given Multivitamins/Minerals (Centrum) 1 tab PO DAILY [facility] Last Admin: 08/23/18 08:00 Dose: 1 tab Nicotine (Habitrol) 7 mg TRDERM DAILY [facility] Last Admin: 08/23/18 08:01 Dose: 7 mg Omeprazole (Omeprazole) 20 mg PO ACBREAKFAST [facility] Last Admin: 08/23/18 07:51 Dose: 20 mg Ondansetron HCl (Zofran Odt) 4 mg PO DAILY [facility] Last Admin: 08/23/18 08:00 Dose: 4 mg Ondansetron HCl (Zofran) 4 mg IVPUSH Q6H PRN PRN Reason: Nausea/Vomiting Last Admin: 08/22/18 11:02 Dose: 4 mg Senna/Docusate Sodium (Senna Plus) 3 tab PO DAILY [facility] Last Admin: 08/23/18 08:00 Dose: 3 tab Sertraline HCl (Zoloft) 150 mg PO DAILY [facility] Last Admin: 08/23/18 08:09 Dose: 150 mg Tamsulosin HCl (Flomax) 0.4 mg PO DAILY [facility] Stop: 08/26/18 11:31 Last Admin: 08/23/18 08:00 Dose: 0.4 mg Tizanidine HCl (Zanaflex) 4 mg PO Q8HR [facility] Last Admin: 08/23/18 05:56 Dose: 4 mg Discontinued Medications Bupropion HCl (Wellbutrin Xl) 300 mg PO DAILY [facility] Last Admin: 08/22/18 12:09 Dose: Not Given Bupropion HCl (Wellbutrin Sr) 300 mg PO DAILY [facility] Last Admin: 08/22/18 13:39 Dose: Not Given Ceftriaxone Sodium (Rocephin) 1 gm IVPUSH ONETIME ONE Stop: 08/22/18 01:15 Last Admin: 08/22/18 02:46 Dose: 1 gm Cranberry (Azo Cranberry) 1 each PO Q8HR [facility] Gabapentin (Neurontin) 800 mg PO BID [facility] Last Admin: 08/22/18 12:09 Dose: Not Given Gabapentin (Neurontin) 800 mg PO BID@0900,2300 [facility] Last Admin: 08/22/18 12:10 Dose: Not Given Gabapentin (Neurontin) 800 mg PO BID@0700,2300 [facility] Gabapentin (Neurontin) 1,200 mg PO BID@1600,2000 [facility] Gabapentin (Neurontin) 1,200 mg PO BID [facility] Gabapentin (Neurontin) 800 mg PO 0800,1200 [facility] Last Admin: 08/22/18 13:39 Dose: Not Given Hydromorphone HCl (Dilaudid) 0.5 mg IVPUSH ONETIME ONE Stop: 08/21/18 22:35 Last Admin: 08/21/18 22:47 Dose: 0.5 mg Hydromorphone HCl (Dilaudid) 0.5 mg IVPUSH ONETIME ONE Stop: 08/22/18 17:06 Sodium Chloride (Normal Saline) 1,000 mls @ 999 mls/hr IV .BOLUS ONE Stop: 08/21/18 23:34 Last Admin: 08/21/18 22:47 Dose: 999 mls/hr Sodium Chloride (Normal Saline) 1,000 mls @ 125 mls/hr IV ASDIRECTED [facility] Last Admin: 08/23/18 03:06 Dose: 125 mls/hr Ibuprofen (Motrin) 600 mg PO ONETIME ONE Stop: 08/21/18 22:40 Last Admin: 08/21/18 22:45 Dose: 600 mg Ibuprofen (Motrin) 600 mg PO Q6H PRN PRN Reason: fever/pain Last Admin: 08/22/18 13:44 Dose: 600 mg Morphine Sulfate (Morphine) 2 mg IVPUSH ONETIME [facility] Stop: 08/22/18 15:23 Last Admin: 08/22/18 15:34 Dose: 2 mg Nicotine Polacrilex (Nicorelief) 4 mg PO Q6H PRN PRN Reason: Other Non-Formulary Medication (Gabapentin) 1,200 mg PO BID [facility] Last Admin: 08/22/18 12:09 Dose: Not Given Ondansetron HCl (Zofran) 4 mg IVPUSH ONETIME ONE Stop: 08/21/18 22:35 Last Admin: 08/21/18 23:06 Dose: 4 mg Psyllium Husk (Metamucil Sugar Free) 1 pkt PO DAILY [facility] Last Admin: 08/22/18 12:10 Dose: Not Given - Exam Quality Assessment: Urine Catheter (suprapubic-yellow with mild sediment returns ), DVT Prophylaxis (lovenox). No: Supplemental Oxygen General: Alert, Oriented (x3), Cooperative, No Acute Distress Lungs: Clear to Auscultation, Normal Respiratory Effort Cardiovascular: Regular Rate, Regular Rhythm, No Murmurs GI/Abdominal Exam: Normal Bowel Sounds, Soft, Non-Tender, No Distention Skin: Warm, Dry Neurological: Normal Speech Psy/Mental Status: Alert, Normal Affect, Normal Mood - Problem List Review Problem List Initiated/Reviewed/Updated: Yes - My Orders Last 24 Hours: My Active Orders 08/22/18 09:41 Intake and Output [RC] 1400,2200,0600 Acetaminophen [Tylenol] 650 mg PO Q4H PRN LORazepam [Ativan] 0.5 mg PO Q8HR Menthol/Methyl Salicylate [Bengay Greaseless Cream] 0 gm TOP ASDIRECTED PRN 08/22/18 09:45 Omeprazole 20 mg PO ACBREAKFAST atorvaSTATin [Lipitor] 40 mg PO DAILY tiZANidine [Zanaflex] 4 mg PO Q8HR 08/22/18 09:46 Up With Assistance [RC] 0900,2100 08/22/18 10:00 Ascorbic Acid [Vitamin C] 500 mg PO DAILY Calcium Citrate/Vitamin D3 [Calcium Citrate + D] 2 tab PO BID Docusate Sodium/Sennosides [Senna Plus] 3 tab PO DAILY Lisinopril [Prinivil] 2.5 mg PO DAILY Ondansetron [Zofran ODT] 4 mg PO DAILY Sertraline [Zoloft] 150 mg PO DAILY 08/22/18 10:15 Carboxymethylcellulose Sodium [Refresh Tears 0.5%] 0 ml EYEBOTH DAILY FA/Lycopene/Lut/MV,Ca,Iron,Min [Centrum] 1 tab PO DAILY Zinc Oxide 0 gm TOP Q7D 08/22/18 10:22 Ondansetron [Zofran] 4 mg IVPUSH Q6H PRN 08/22/18 10:23 Code Status [Resuscitation Status] Routine 08/22/18 11:30 Tamsulosin [Flomax] 0.4 mg PO DAILY 08/22/18 11:31 Accu Check [Blood Glucose Check, Bedside] [RC] BIDAC 08/22/18 11:43 Communication Order [RC] DAILY 08/22/18 12:30 Enoxaparin [Lovenox] 40 mg SUBCUT Q24H Gabapentin [Neurontin] 200 mg PO 0800,1200 buPROPion [Wellbutrin SR] 150 mg PO BID 08/22/18 12:45 Gabapentin [Neurontin] 600 mg PO 0800,1200 08/22/18 13:00 Diclofenac Sodium [Voltaren 1% Gel] 0 gm TOP QID 08/22/18 13:15 Nicotine [Habitrol] 7 mg TRDERM DAILY 08/22/18 16:00 Gabapentin [Neurontin] 1,200 mg PO 1600,1900 fentaNYL [Duragesic] 100 mcg TRDERM Q72H 08/22/18 16:15 fentaNYL [Duragesic] 25 mcg TRDERM Q72H 08/22/18 17:04 Ketorolac [Toradol] 30 mg IVPUSH Q6H PRN 08/22/18 21:00 LORazepam [Ativan] 0.25 mg PO BEDTIME 08/23/18 01:00 cefTRIAXone [Rocephin] 1 gm IVPUSH Q24H 08/24/18 05:11 BMP [BASIC METABOLIC PANEL,BMP] [CHEM] AM CBC WITH AUTO DIFF [HEME] AM - Plan Plan:: HPI: This is a 38 year old female who resides at the [facility] in [place], [place] who developed a fever and low back pain about 3 days ago. long term reported fevers of low-grade up to 103 degrees F intermittently for the past 3 days. Patient has a suprapubic catheter in place due to being a paraplegia and was noted to have darker colored urine. She was transferred to the ED via ambulance for further evaluation. She was found to have a UTI and was admitted for further treatment and monitoring. Pertinent ED work-up: WBC 18.5 with neutrophilia Na 134 Lactic acid 1.5 UA positive for nitrites, large leukocytes, and many bacteria Urine culture pending CT abd/pelvis: mildly thick walled urinary bladder representing cystitis; bladder filled with multiple large calculi with mild dilation of both urinary collecting systems; 2.8 x 1.1 cm partially obstructing left renal pelvis calculi NS 1 liter bolus Rocephin 1 gm IV x 1 Ibuprofen po and zofran IV x 1 Primary assessment/plan: Acute cystitis, improving. Urine culture showing gram + cocci and gram - rods. ID pending. WBC 9.1 with no neutrophilia. Continue IV rocephin. Discontinue IVFs. CBC in AM. Nephrolithiasis of left kidney and bladder. 2.8 x 1.1 cm partially obstructing calculi in left renal pelvis with multiple large calculi in bladder. Patient notes she may have passed the left kidney stone as she had some left-sided pain late afternoon yesterday. Creatinine 0.80, Na 141. Continue flomax. Set up urology appoinment as outpatient. BMP in AM. Suprapubic catheter in place. Irrigate with NS 250 mL daily. Has had to have IR replace this in the past. Will need to go back to assisted with orders to irrigate at least daily as this had not been done prior to hospital admission. Secondary assessment/plan: T2DM. Hold metformin due to CT scan. Dc accuchecks, glucose 157. ADA diet. Continue lisinopril 2.5 mg daily. A1c 5.2 (07/2018). HLD. LDL 55 (07/2018). Continue lipitor. Paraplegia, from the chest down. Rods in place from T1 to T10 due to suicide attempt about 6 years ago. Morbid obesity. Former smoker. Has used nicotine replacement gum while at the assisted, not available in house. Nicotine patch 7 mg daily placed. Depression. Continue wellbutrin and zoloft. Anxiety. Continue ativan. Schizophrenia. Followed by Dr. Brooks, psychiatrist, at assisted. PTSD. History of drug/alcohol abuse. 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 Neuropathic pain. On gabapentin, tapering dose of fentanyl patch and tizanidine. Patient is to be on fentanyl 125 mcg patch until 08/25/18, then 100 mcg until 09/12/18, then 75 mcg until 09/27/18, then 50 mcg. Fibromyalgia syndrome. Followed by pain clinic. Thoracic back pain. Myofascial pain along incision. Reflux esophagitis. Continue omeprazole. Dry eyes. Refresh drops daily. DVT prophylaxis. Score 3. Lovenox 40 mg SQ daily. Overall plan: Discontinue IV fluids. Continue IV rocephin. Monitor hemodynamic status. Patient will likely be able to discharged back to [facility] tomorrow.
[2018-08-23] MEDS: Acetaminophen 325 MG Tab PO PRN (10:38)
[2018-08-23] MEDS: Enoxaparin 40 MG/0.4 ML Syringe SUBCUT SCH (12:06)
[2018-08-24] MEDS: METHYL SALICYLATE TOP PRN (00:09)
[2018-08-24] MEDS: MENTHOL TOP PRN (00:09)
[2018-08-24] MEDS: cefTRIAXone 1 GM Vial IVPUSH SCH (00:11)
[2018-08-24] MEDS: LORazepam 0.5 MG Tab PO SCH ×3 (06:19→20:02)
[2018-08-24] MEDS: tiZANidine 4 MG Tab PO SCH ×3 (06:19→21:08)
[2018-08-24] MEDS: Omeprazole 20 MG Cap.CR PO SCH (07:41)
[2018-08-24] MEDS: Gabapentin 300 MG Cap PO SCH ×4 (07:42→18:10)
[2018-08-24] MEDS: Gabapentin 100 MG Cap PO SCH ×2 (07:42→11:40)
[2018-08-24] MEDS: Calcium Citrate/Vitamin D3 315 MG-250 Unit Tab PO SCH ×2 (08:00→20:03)
[2018-08-24] MEDS: Carboxymethylcellulose Sodium 0.5% Ophth Soln 15 ML Bottle EYEBOTH SCH (08:00)
[2018-08-24] MEDS: Ondansetron 4 MG Tab.DIS PO SCH (08:00)
[2018-08-24] MEDS: Tamsulosin 0.4 MG Cap.ER PO SCH (08:00)
[2018-08-24] MEDS: buPROPion 150 MG Tab.SR PO SCH ×2 (08:00→20:03)
[2018-08-24] MEDS: Diclofenac Sodium 1% Gel 100 GM Tube TOP SCH ×4 (08:00→20:02)
[2018-08-24] MEDS: Nicotine 7 MG/24 Hr Patch TRDERM SCH (08:00)
[2018-08-24] MEDS: Sertraline 50 MG Tab PO SCH (08:00)
[2018-08-24] MEDS: atorvaSTATin 40 MG Tab PO SCH (08:00)
[2018-08-24] MEDS: Ascorbic Acid 500 MG Tab PO SCH (08:00)
[2018-08-24] MEDS: Multivitamins with Minerals/Iron/Folic Acid/Lycopene Tab PO SCH (08:00)
[2018-08-24 08:01] LABS: CHLORIDE,CL 108 mmol/L (98-115); SODIUM,NA 145 mmol/L (136-145)
[2018-08-24] MEDS: Lisinopril 5 MG Tab PO SCH (08:43)
[2018-08-24] MEDS: Ketorolac 30 MG/ML SDV IVPUSH PRN ×2 (11:39→18:09)
[2018-08-24] MEDS: Enoxaparin 40 MG/0.4 ML Syringe SUBCUT SCH (11:40)
[2018-08-24] MEDS: Acetaminophen 325 MG Tab PO PRN ×2 (13:56→20:03)
--- NOTE | 2018-08-24 21:55 | PCM.PN ---
- General Info Date of Service: 08/24/18 Admission Dx/Problem (Free Text): Admission Diagnosis/Problem Admission Diagnosis/Problem Cystitis Subjective Update: Ms. Mayo states she feels well this morning. She reports feeling markedly better than on admission. Denies any further flank or abdominal pain. Tolerating diet well. Denies fever, chills, shortness of breath, chest pain, abdominal pain, nausea, or other new concerns. - Patient Data Vitals - Most Recent: Last Vital Signs Temp 36.4 C 08/24/18 19:00 Pulse 68 08/24/18 19:00 Resp 16 08/24/18 19:00 BP 125/79 08/24/18 19:00 Pulse Ox 99 08/24/18 19:00 Weight - Most Recent: 102.597 kg I&O - Last 24 Hours: Intake & Output 08/24/18 08/24/18 08/24/18 06:59 14:59 22:59 Intake Total 750 1000 Output Total 1800 2350 Balance -1050 -1350 Lab Results Last 24 Hours: Laboratory Results - last 24 hr 08/24/18 08/24/18 Range/Units 07:25 07:25 WBC 6.22 (5.00-10.00) 10^3/uL RBC 3.40 L (3.80-5.50) 10^6/uL Hgb 9.9 L (12.0-16.0) g/dL Hct 31.6 L (37.0-47.0) % MCV 92.9 H (82.0-92.0) fL MCH 29.1 (27.0-31.0) pg MCHC 31.3 L (32.0-36.0) g/dL RDW 14.3 (11.5-14.5) % Plt Count 235 (150-400) 10^3/uL MPV 9.8 (7.4-10.4) fL Immature Gran % (Auto) 0.3 (0.0-5.0) % Neut % (Auto) 67.1 (50.0-70.0) % Lymph % (Auto) 19.0 L (20.0-40.0) % [place] % (Auto) 10.1 H (2.0-8.0) % Eos % (Auto) 3.2 H (1.0-3.0) % Baso % (Auto) 0.3 (0.0-1.0) % Immature Gran # (Auto) 0.02 (0.00-0.50) 10^3/uL Neut # (Auto) 4.17 (2.50-7.00) 10^3/uL Lymph # (Auto) 1.18 (1.00-4.00) 10^3/uL [place] # (Auto) 0.63 (0.10-0.80) 10^3/uL Eos # (Auto) 0.20 (0.10-0.30) 10^3/uL Baso # (Auto) 0.02 (0.00-0.10) 10^3/uL Sodium 145 (136-145) mmol/L Potassium 4.0 (3.3-5.3) mmol/L Chloride 108 (98-115) mmol/L Carbon Dioxide 28.0 (21.0-32.0) mmol/L Anion Gap 13.0 (5-15) mmol/L BUN 8 (6-25) mg/dL Creatinine 0.74 (0.51-1.17) mg/dL Est Cr Clr Drug Dosing 101.94 mL/min Estimated GFR (MDRD) > 60 mL/min Glucose 154 H (75 - 99) mg/dL Calcium 8.4 L (8.7-10.3) mg/dL Roddy Results Last 24 Hours: Microbiology 08/21/18 22:55 Bacterial ID and Susceptibility - Preliminary Urine Gram Negative Rods Med Orders - Current: Current Medications Acetaminophen (Tylenol) 650 mg PO Q4H PRN PRN Reason: Pain Last Admin: 08/24/18 20:03 Dose: 650 mg Artificial Tears (Refresh Tears 0.5%) 0 ml EYEBOTH DAILY [facility] Last Admin: 08/24/18 08:00 Dose: 1 drop Ascorbic Acid (Vitamin C) 500 mg PO DAILY [facility] Last Admin: 08/24/18 08:00 Dose: 500 mg Atorvastatin Calcium (Lipitor) 40 mg PO DAILY [facility] Last Admin: 08/24/18 08:00 Dose: 40 mg Bupropion HCl (Wellbutrin Sr) 150 mg PO BID [facility] Last Admin: 08/24/18 20:03 Dose: 150 mg Calcium Citrate (Calcium Citrate + D) 2 tab PO BID [facility] Last Admin: 08/24/18 20:03 Dose: 2 tab Ceftriaxone Sodium (Rocephin) 1 gm IVPUSH Q24H [facility] Last Admin: 08/24/18 00:11 Dose: 1 gm Diclofenac Sodium (Voltaren 1% Gel) 0 gm TOP QID [facility] Last Admin: 08/24/18 20:02 Dose: 1 applic Enoxaparin Sodium (Lovenox) 40 mg SUBCUT Q24H [facility] Last Admin: 08/24/18 11:40 Dose: 40 mg Fentanyl (Duragesic) 100 mcg TRDERM Q72H [facility] Last Admin: 08/22/18 16:34 Dose: 100 mcg Fentanyl (Duragesic) 25 mcg TRDERM Q72H [facility] Stop: 08/25/18 09:00 Last Admin: 08/22/18 16:36 Dose: 25 mcg Gabapentin (Neurontin) 1,200 mg PO 1600,1900 [facility] Last Admin: 08/24/18 18:10 Dose: 1,200 mg Gabapentin (Neurontin) 200 mg PO 0800,1200 [facility] Last Admin: 08/24/18 11:40 Dose: 200 mg Gabapentin (Neurontin) 600 mg PO 0800,1200 [facility] Last Admin: 08/24/18 11:40 Dose: 600 mg Ketorolac Tromethamine (Toradol) 30 mg IVPUSH Q6H PRN PRN Reason: Pain Last Admin: 08/24/18 18:09 Dose: 30 mg Lisinopril (Prinivil) 2.5 mg PO DAILY [facility] Last Admin: 08/24/18 08:43 Dose: 2.5 mg Lorazepam (Ativan) 0.25 mg PO BEDTIME [facility] Last Admin: 08/24/18 20:02 Dose: 0.25 mg Lorazepam (Ativan) 0.5 mg PO TID@0700,1100,1500 [facility] Methyl Salicylate (Bengay Greaseless Cream) 0 gm TOP ASDIRECTED PRN PRN Reason: Pain Last Admin: 08/24/18 00:09 Dose: 1 applic Multi-Ingred Cream/Lotion/Oil/Oint (Zinc Oxide) 0 gm TOP Q7D [facility] Last Admin: 08/22/18 12:15 Dose: Not Given Multivitamins/Minerals (Centrum) 1 tab PO DAILY [facility] Last Admin: 08/24/18 08:00 Dose: 1 tab Nicotine (Habitrol) 7 mg TRDERM DAILY [facility] Last Admin: 08/24/18 08:00 Dose: 7 mg Omeprazole (Omeprazole) 20 mg PO ACBREAKFAST [facility] Last Admin: 08/24/18 07:41 Dose: 20 mg Ondansetron HCl (Zofran Odt) 4 mg PO DAILY [facility] Last Admin: 08/24/18 08:00 Dose: 4 mg Ondansetron HCl (Zofran) 4 mg IVPUSH Q6H PRN PRN Reason: Nausea/Vomiting Last Admin: 08/22/18 11:02 Dose: 4 mg Senna/Docusate Sodium (Senna Plus) 3 tab PO DAILY [facility] Last Admin: 08/24/18 08:00 Dose: 3 tab Sertraline HCl (Zoloft) 150 mg PO DAILY [facility] Last Admin: 08/24/18 08:00 Dose: 150 mg Tamsulosin HCl (Flomax) 0.4 mg PO DAILY [facility] Stop: 08/26/18 11:31 Last Admin: 08/24/18 08:00 Dose: 0.4 mg Tizanidine HCl (Zanaflex) 4 mg PO Q8HR [facility] Last Admin: 08/24/18 21:08 Dose: 4 mg Discontinued Medications Bupropion HCl (Wellbutrin Xl) 300 mg PO DAILY [facility] Last Admin: 08/22/18 12:09 Dose: Not Given Bupropion HCl (Wellbutrin Sr) 300 mg PO DAILY [facility] Last Admin: 08/22/18 13:39 Dose: Not Given Ceftriaxone Sodium (Rocephin) 1 gm IVPUSH ONETIME ONE Stop: 08/22/18 01:15 Last Admin: 08/22/18 02:46 Dose: 1 gm Cranberry (Azo Cranberry) 1 each PO Q8HR [facility] Gabapentin (Neurontin) 800 mg PO BID [facility] Last Admin: 08/22/18 12:09 Dose: Not Given Gabapentin (Neurontin) 800 mg PO BID@0900,2300 [facility] Last Admin: 08/22/18 12:10 Dose: Not Given Gabapentin (Neurontin) 800 mg PO BID@0700,2300 [facility] Gabapentin (Neurontin) 1,200 mg PO BID@1600,2000 [facility] Gabapentin (Neurontin) 1,200 mg PO BID [facility] Gabapentin (Neurontin) 800 mg PO 0800,1200 [facility] Last Admin: 08/22/18 13:39 Dose: Not Given Hydromorphone HCl (Dilaudid) 0.5 mg IVPUSH ONETIME ONE Stop: 08/21/18 22:35 Last Admin: 08/21/18 22:47 Dose: 0.5 mg Hydromorphone HCl (Dilaudid) 0.5 mg IVPUSH ONETIME ONE Stop: 08/22/18 17:06 Last Admin: 08/23/18 09:44 Dose: Not Given Sodium Chloride (Normal Saline) 1,000 mls @ 999 mls/hr IV .BOLUS ONE Stop: 08/21/18 23:34 Last Admin: 08/21/18 22:47 Dose: 999 mls/hr Sodium Chloride (Normal Saline) 1,000 mls @ 125 mls/hr IV ASDIRECTED [facility] Last Admin: 08/23/18 03:06 Dose: 125 mls/hr Ibuprofen (Motrin) 600 mg PO ONETIME ONE Stop: 08/21/18 22:40 Last Admin: 08/21/18 22:45 Dose: 600 mg Ibuprofen (Motrin) 600 mg PO Q6H PRN PRN Reason: fever/pain Last Admin: 08/22/18 13:44 Dose: 600 mg Lorazepam (Ativan) 0.5 mg PO Q8HR [facility] Last Admin: 08/23/18 14:14 Dose: Not Given Lorazepam (Ativan) 0.5 mg PO Q8H [facility] Last Admin: 08/24/18 13:52 Dose: 0.5 mg Morphine Sulfate (Morphine) 2 mg IVPUSH ONETIME [facility] Stop: 08/22/18 15:23 Last Admin: 08/22/18 15:34 Dose: 2 mg Nicotine Polacrilex (Nicorelief) 4 mg PO Q6H PRN PRN Reason: Other Non-Formulary Medication (Gabapentin) 1,200 mg PO BID [facility] Last Admin: 08/22/18 12:09 Dose: Not Given Ondansetron HCl (Zofran) 4 mg IVPUSH ONETIME ONE Stop: 08/21/18 22:35 Last Admin: 08/21/18 23:06 Dose: 4 mg Psyllium Husk (Metamucil Sugar Free) 1 pkt PO DAILY [facility] Last Admin: 08/22/18 12:10 Dose: Not Given - Exam Physical Findings Comments:: GENERAL: Adult white female lying in hospital bed in no acute distress. HEENT: Normocephalic, atraumatic. Conjunctiva clear. Nares patent without discharge. Mucous membranes moist. NECK: Supple, no masses. CV: Regular rate and rhythm, no murmurs, rubs, or gallops. 2+ radial pulses. PULMONARY: Normal effort, clear to auscultation bilaterally, no wheezes, rales, or rhonchi. ABDOMEN: Obese, positive bowel sounds, soft, nontender, suprapubic catheter site without erythema and draining clear-light yellow urine. EXTREMITIES: No edema, cyanosis, or clubbing. MUSCULOSKELETAL: Moves upper extremities without difficulty. Paraplegic. DERMATOLOGIC: No rashes or suspicious lesions in exposed areas. PSYCHIATRIC: Alert, interactive, appropriate affect. - Problem List Review Problem List Initiated/Reviewed/Updated: Yes - Plan Plan:: HPI summary: 38yoF with a history notable for paraplegia who resides at [facility] in [place], [place], who developed a fever and low back pain 3 days prior to admission. halfway staff reported fevers up to 103 degrees F. Patient has a suprapubic catheter in place due to paraplegia and was noted to have darker colored urine. She was transferred to the [facility] ED via ambulance for further evaluation. ED course: She was noted to be hemodynamically stable without focal abnormalities on exam. Labs and workup was notable for WBC 18.5 with neutrophilia, lactic acid 1.5, UA +nitrites/large leukocytes/many bacteria, and CT abd/pelvis with mildly thickened urinary bladder wall representing cystitis, bladder filled with multiple large calculi with mild dilation of both urinary collecting systems, and 2.8 x 1.1 cm partially obstructing left renal pelvis calculi. She was given NS 1 liter bolus, ceftriaxone 1 gm IV, ondansetron, and ibuprofen. Due to complicated cystitis, was admitted for further work-up and management. Hospitalization problems: Acute cystitis: Complicated by nephrolithiasis, as below. Ongoing clinical improvement in symptoms and leukocytosis. Urine culture shows gram + cocci and gram - rods. - Continue ceftriaxone awaiting culture ID and sensitivities Nephrolithiasis of left renal pelvis and bladder: 2.8 x 1.1 cm partially obstructing calculi in left renal pelvis with multiple large calculi in bladder noted on admission CT. Clinical resolution of L flank pain, fitting with passage of small left renal pelvis calculi. - Discontinue tamsulosin - Urology consultation as outpatient Suprapubic catheter in place: Previously with difficult replacements, necessitating placement by interventional radiology. Was having irrigation performed BID prior to transfer to [facility]. - Continue daily irrigation with NS 250 mL Chronic, stable conditions: Reflux esophagitis: Continue omeprazole. DMT2: A1c 5.2 (07/2018). On metformin previously, but question necessity given low A1c. - Discontinue metformin and lisinopril (for which she is taking exclusively for renal protection) at discharge and recheck A1c in 3 months HLD: LDL 55 (07/2018). ASCVD 10-year risk low, well below 7.5-10% threshold. - Discontinue atorvastatin at discharge and recheck lipid panel in 3 months Obesity: BMI 34. Paraplegia: Secondary to suicide attempt about 6 years ago and rods in place in thoracic spine. Chronic thoracic spine and neuropathic pain / Fibromyalgia: Followed by pain clinic. Continue gabapentin, tapering dose of fentanyl patch, and tizanidine. Patient is to be on fentanyl 125 mcg patch until 08/25/18, then 100 mcg until 09/12, then 75 mcg until 09/27/18, then 50 mcg. Schizophrenia / Depression, major, recurrent / Anxiety / PTSD: Followed by Dr. Brooks, psychiatrist, at [facility]. Continue bupropion, sertraline, and lorazepam. History of tobacco dependence: Uses nicotine replacement gum while at the [facility], which is not available in hospital. Continue nicotine patch 7 mg daily. History of drug/alcohol abuse: Prior addiction to Benadryl, so ensure no administration. Dry eyes: Continue Refresh drops daily. Hospitalization details: # FEN: No IVF. Electrolytes normal. Regular diet. # PPX: Enoxaparin 40mg daily for DVT ppx. # Code status: DNR. # Emergency contact: Per [facility] papers; [facility] provided update today on patient status. # Disposition: Continue on inpatient status with plan to discharge tomorrow following urine culture identification and sensitivity results allowing for guided transition to oral antibiotic.
[2018-08-25] MEDS: cefTRIAXone 1 GM Vial IVPUSH SCH (01:08)
[2018-08-25] MEDS: Ketorolac 30 MG/ML SDV IVPUSH PRN (01:36)
[2018-08-25] MEDS: LORazepam 0.5 MG Tab PO SCH ×2 (06:04→11:01)
[2018-08-25] MEDS: tiZANidine 4 MG Tab PO SCH (06:05)
[2018-08-25 06:31] VITALS: BP 108/65
[2018-08-25] MEDS: Gabapentin 300 MG Cap PO SCH ×2 (07:53→11:02)
[2018-08-25] MEDS: Gabapentin 100 MG Cap PO SCH ×2 (07:53→11:02)
[2018-08-25] MEDS: Omeprazole 20 MG Cap.CR PO SCH (07:53)
[2018-08-25] MEDS: Ondansetron 4 MG Tab.DIS PO SCH (07:59)
[2018-08-25] MEDS: buPROPion 150 MG Tab.SR PO SCH (07:59)
[2018-08-25] MEDS: Sertraline 50 MG Tab PO SCH (07:59)
[2018-08-25] MEDS: Calcium Citrate/Vitamin D3 315 MG-250 Unit Tab PO SCH (07:59)
[2018-08-25] MEDS: Multivitamins with Minerals/Iron/Folic Acid/Lycopene Tab PO SCH (08:00)
[2018-08-25] MEDS: Ascorbic Acid 500 MG Tab PO SCH (08:00)
[2018-08-25] MEDS: Lisinopril 5 MG Tab PO SCH (08:00)
[2018-08-25] MEDS: atorvaSTATin 40 MG Tab PO SCH (08:01)
[2018-08-25] MEDS: Diclofenac Sodium 1% Gel 100 GM Tube TOP SCH (08:01)
[2018-08-25] MEDS: Carboxymethylcellulose Sodium 0.5% Ophth Soln 15 ML Bottle EYEBOTH SCH (08:01)
[2018-08-25] MEDS: Nicotine 7 MG/24 Hr Patch TRDERM SCH (08:01)
--- NOTE | 2018-08-25 11:06 | PCM.DCSUM1 ---
Discharge Summary - Discharge Data Discharge Date: 08/25/18 Discharge Disposition: DC/Tfer to SNF 03 Condition: Good - Patient Instructions Diet: Usual Diet as Tolerated Activity: As Tolerated Showering/Bathing: May Shower Notify Provider of: Fever, Increased Pain, Nausea and/or Vomiting - Discharge Plan *PRESCRIPTION DRUG MONITORING PROGRAM REVIEWED*: Yes *COPY OF PRESCRIPTION DRUG MONITORING REPORT IN PATIENT COMFORT: Yes Prescriptions/Med Rec: Sulfamethoxazole/Trimethoprim [Bactrim Ds Tablet] 1 each PO BID 6 Days #12 tablet Home Medications: Home Meds Acetaminophen 650 mg PO Q4HR PRN 08/22/18 [History] Ascorbate Calcium [Vitamin C] 500 mg PO DAILY 08/22/18 [History] Bisacodyl [Biscolax] 1,025.97 mg PO DAILY 08/22/18 [History] Calcium Carbonate/Vitamin D3 [Calcium 600 + Vit D 200] 1 each PO BID 08/22/18 [ History] Cranberry 400 mg PO Q8HR 08/22/18 [History] Dextran 70/Hypromellose [Artificial Tears] 1 each OP DAILY 08/22/18 [History] Diclofenac Sodium [Voltaren 1% Gel] 1 applic TP QID 08/22/18 [History] Gabapentin [Neurontin] 1,200 mg PO BID 08/22/18 [History] Gabapentin [Neurontin] 800 mg PO BID 08/22/18 [History] LORazepam 0.25 mg PO BEDTIME 08/22/18 [History] LORazepam [Ativan] 0.5 mg PO Q8HR 08/22/18 [History] Methyl Salicylate/Menthol [Muscle Rub] 85 gm TP ASDIRECTED PRN 08/22/18 [History ] Methylcellulose [Fiber] 500 mg PO DAILY 08/22/18 [History] Multivit with Iron,Minerals [Spectravite Senior] 1 tab PO DAILY 08/22/18 [ History] Nicotine Polacrilex [Nicorette] 4 mg BC Q6HR PRN 08/22/18 [History] Omeprazole 20 mg PO DAILY 08/22/18 [History] Ondansetron HCl [Zofran] 4 mg PO DAILY 08/22/18 [History] Sennosides [Senna] 25.8 mg PO DAILY 08/22/18 [History] Sertraline [Zoloft] 150 mg PO DAILY 08/22/18 [History] Zinc Oxide 56.7 gm TP WEEKLY 08/22/18 [History] buPROPion HCl [Wellbutrin Xl] 300 mg PO DAILY 08/22/18 [History] tiZANidine [Zanaflex] 4 mg PO Q8H 08/22/18 [History] Sulfamethoxazole/Trimethoprim [Bactrim Ds Tablet] 1 each PO BID 6 Days #12 tablet 08/25/18 [Rx] fentaNYL [Duragesic] 100 mcg TRDERM Q72H patch 08/25/18 [Rx] Referrals: Michelle Marcelo MD [Primary Care Provider] - (next correction rounds) - Discharge Summary/Plan Comment DC Time >30 min.: Yes - Patient Data Vitals - Most Recent: Last Vital Signs Temp 36.9 C 08/25/18 06:30 Pulse 68 08/25/18 06:30 Resp 16 08/25/18 06:30 BP 108/65 08/25/18 08:00 Pulse Ox 98 08/25/18 07:56 Weight - Most Recent: 102.597 kg I&O - Last 24 hours: Intake & Output 08/24/18 08/25/18 08/25/18 22:59 06:59 14:59 Intake Total 960 550 Output Total 1450 1600 Balance -490 -1050 SH[facility] Results - Last 24 hrs: Microbiology 08/21/18 22:55 Bacterial ID and Susceptibility - Preliminary Urine Gram Negative Rods Med Orders - Current: Current Medications Acetaminophen (Tylenol) 650 mg PO Q4H PRN PRN Reason: Pain Last Admin: 08/24/18 20:03 Dose: 650 mg Artificial Tears (Refresh Tears 0.5%) 0 ml EYEBOTH DAILY [facility] Last Admin: 08/25/18 08:01 Dose: Not Given Ascorbic Acid (Vitamin C) 500 mg PO DAILY [facility] Last Admin: 08/25/18 08:00 Dose: 500 mg Atorvastatin Calcium (Lipitor) 40 mg PO DAILY [facility] Last Admin: 08/25/18 08:01 Dose: 40 mg Bupropion HCl (Wellbutrin Sr) 150 mg PO BID [facility] Last Admin: 08/25/18 07:59 Dose: 150 mg Calcium Citrate (Calcium Citrate + D) 2 tab PO BID [facility] Last Admin: 08/25/18 07:59 Dose: 2 tab Ceftriaxone Sodium (Rocephin) 1 gm IVPUSH Q24H [facility] Last Admin: 08/25/18 01:08 Dose: 1 gm Diclofenac Sodium (Voltaren 1% Gel) 0 gm TOP QID [facility] Last Admin: 08/25/18 08:01 Dose: 1 applic Enoxaparin Sodium (Lovenox) 40 mg SUBCUT Q24H [facility] Last Admin: 08/24/18 11:40 Dose: 40 mg Fentanyl (Duragesic) 100 mcg TRDERM Q72H [facility] Last Admin: 08/22/18 16:34 Dose: 100 mcg Gabapentin (Neurontin) 1,200 mg PO 1600,1900 [facility] Last Admin: 08/24/18 18:10 Dose: 1,200 mg Gabapentin (Neurontin) 200 mg PO 0800,1200 [facility] Last Admin: 08/25/18 11:02 Dose: 200 mg Gabapentin (Neurontin) 600 mg PO 0800,1200 [facility] Last Admin: 08/25/18 11:02 Dose: 600 mg Ketorolac Tromethamine (Toradol) 30 mg IVPUSH Q6H PRN PRN Reason: Pain Last Admin: 08/25/18 01:36 Dose: 30 mg Lisinopril (Prinivil) 2.5 mg PO DAILY [facility] Last Admin: 08/25/18 08:00 Dose: 2.5 mg Lorazepam (Ativan) 0.25 mg PO BEDTIME [facility] Last Admin: 08/24/18 20:02 Dose: 0.25 mg Lorazepam (Ativan) 0.5 mg PO TID@0700,1100,1500 [facility] Last Admin: 08/25/18 11:01 Dose: 0.5 mg Methyl Salicylate (Bengay Greaseless Cream) 0 gm TOP ASDIRECTED PRN PRN Reason: Pain Last Admin: 08/24/18 00:09 Dose: 1 applic Multi-Ingred Cream/Lotion/Oil/Oint (Zinc Oxide) 0 gm TOP Q7D [facility] Last Admin: 08/22/18 12:15 Dose: Not Given Multivitamins/Minerals (Centrum) 1 tab PO DAILY [facility] Last Admin: 08/25/18 08:00 Dose: 1 tab Nicotine (Habitrol) 7 mg TRDERM DAILY [facility] Last Admin: 08/25/18 08:01 Dose: 7 mg Omeprazole (Omeprazole) 20 mg PO ACBREAKFAST [facility] Last Admin: 08/25/18 07:53 Dose: 20 mg Ondansetron HCl (Zofran Odt) 4 mg PO DAILY [facility] Last Admin: 08/25/18 07:59 Dose: 4 mg Ondansetron HCl (Zofran) 4 mg IVPUSH Q6H PRN PRN Reason: Nausea/Vomiting Last Admin: 08/22/18 11:02 Dose: 4 mg Senna/Docusate Sodium (Senna Plus) 3 tab PO DAILY [facility] Last Admin: 08/25/18 07:59 Dose: 3 tab Sertraline HCl (Zoloft) 150 mg PO DAILY [facility] Last Admin: 08/25/18 07:59 Dose: 150 mg Tizanidine HCl (Zanaflex) 4 mg PO Q8HR [facility] Last Admin: 08/25/18 06:05 Dose: 4 mg Discontinued Medications Bupropion HCl (Wellbutrin Xl) 300 mg PO DAILY [facility] Last Admin: 08/22/18 12:09 Dose: Not Given Bupropion HCl (Wellbutrin Sr) 300 mg PO DAILY [facility] Last Admin: 08/22/18 13:39 Dose: Not Given Ceftriaxone Sodium (Rocephin) 1 gm IVPUSH ONETIME ONE Stop: 08/22/18 01:15 Last Admin: 08/22/18 02:46 Dose: 1 gm Cranberry (Azo Cranberry) 1 each PO Q8HR [facility] Fentanyl (Duragesic) 25 mcg TRDERM Q72H [facility] Stop: 08/25/18 09:00 Last Admin: 08/22/18 16:36 Dose: 25 mcg Gabapentin (Neurontin) 800 mg PO BID [facility] Last Admin: 08/22/18 12:09 Dose: Not Given Gabapentin (Neurontin) 800 mg PO BID@0900,2300 [facility] Last Admin: 08/22/18 12:10 Dose: Not Given Gabapentin (Neurontin) 800 mg PO BID@0700,2300 [facility] Gabapentin (Neurontin) 1,200 mg PO BID@1600,2000 [facility] Gabapentin (Neurontin) 1,200 mg PO BID [facility] Gabapentin (Neurontin) 800 mg PO 0800,1200 [facility] Last Admin: 08/22/18 13:39 Dose: Not Given Hydromorphone HCl (Dilaudid) 0.5 mg IVPUSH ONETIME ONE Stop: 08/21/18 22:35 Last Admin: 08/21/18 22:47 Dose: 0.5 mg Hydromorphone HCl (Dilaudid) 0.5 mg IVPUSH ONETIME ONE Stop: 08/22/18 17:06 Last Admin: 08/23/18 09:44 Dose: Not Given Sodium Chloride (Normal Saline) 1,000 mls @ 999 mls/hr IV .BOLUS ONE Stop: 08/21/18 23:34 Last Admin: 08/21/18 22:47 Dose: 999 mls/hr Sodium Chloride (Normal Saline) 1,000 mls @ 125 mls/hr IV ASDIRECTED [facility] Last Admin: 08/23/18 03:06 Dose: 125 mls/hr Ibuprofen (Motrin) 600 mg PO ONETIME ONE Stop: 08/21/18 22:40 Last Admin: 08/21/18 22:45 Dose: 600 mg Ibuprofen (Motrin) 600 mg PO Q6H PRN PRN Reason: fever/pain Last Admin: 08/22/18 13:44 Dose: 600 mg Lorazepam (Ativan) 0.5 mg PO Q8HR [facility] Last Admin: 08/23/18 14:14 Dose: Not Given Lorazepam (Ativan) 0.5 mg PO Q8H [facility] Last Admin: 08/24/18 13:52 Dose: 0.5 mg Morphine Sulfate (Morphine) 2 mg IVPUSH ONETIME [facility] Stop: 08/22/18 15:23 Last Admin: 08/22/18 15:34 Dose: 2 mg Nicotine Polacrilex (Nicorelief) 4 mg PO Q6H PRN PRN Reason: Other Non-Formulary Medication (Gabapentin) 1,200 mg PO BID [facility] Last Admin: 08/22/18 12:09 Dose: Not Given Ondansetron HCl (Zofran) 4 mg IVPUSH ONETIME ONE Stop: 08/21/18 22:35 Last Admin: 08/21/18 23:06 Dose: 4 mg Psyllium Husk (Metamucil Sugar Free) 1 pkt PO DAILY [facility] Last Admin: 08/22/18 12:10 Dose: Not Given Tamsulosin HCl (Flomax) 0.4 mg PO DAILY [facility] Stop: 08/26/18 11:31 Last Admin: 08/24/18 08:00 Dose: 0.4 mg
== END 2018-08-25 11:30 | DRG 690 ==
LOC: KA.ED 22:10 → KA.MS 08-22 01:19
PROVIDERS: ADMIT Physician Assistant Surgical; ATTEND Family Medicine
DX: N30.00 Acute cystitis without hematuria (principal); G82.20 Paraplegia, unspecified; B19.20 Unspecified viral hepatitis C without hepatic coma; F41.9 Anxiety disorder, unspecified; F90.9 Attention-deficit hyperactivity disorder, unspecified type; F20.9 Schizophrenia, unspecified; Z66 Do not resuscitate; E11.9 Type 2 diabetes mellitus without complications; N20.0 Calculus of kidney; E78.5 Hyperlipidemia, unspecified; E66.01 Morbid (severe) obesity due to excess calories; F32.9 Major depressive disorder, single episode, unspecified; K21.0 Gastro-esophageal reflux disease with esophagitis; H53.10 Unspecified subjective visual disturbances; Z68.34 Body mass index [BMI] 34.0-34.9, adult; Z91.041 Radiographic dye allergy status; Z87.891 Personal history of nicotine dependence; Z79.899 Other long term (current) drug therapy; Z79.84 Long term (current) use of oral hypoglycemic drugs
CPT/HCPCS: 36415; 74177; 80048; 80053; 81001; 83605; 85025; 87086; 87088; 87186; 96361; 96374; 96375; 99284; 99285-25; A9270-GY; J0696; J1170; J1650; J1885; J2270; J2405; J7030

== ENCOUNTER 2018-09-16 08:45 | Emergency (ER) | payer MEDICARE, MEDICAID ==
[2018-09-16 09:13] VITALS: BP 129/73
--- NOTE | 2018-09-16 09:28 | EDM.PDOC ---
ED HPI GENERAL MEDICAL PROBLEM - General Chief Complaint: General Stated Complaint: MEDICAL CLEARANCE Time Seen by Provider: 09/16/18 09:06 Source of Information: Reports: Patient History Limitations: Reports: No Limitations - History of Present Illness INITIAL COMMENTS - FREE TEXT/NARRATIVE: Patient is a 38-year-old female who presents to the emergency department this morning via EMS secondary to suicide attempt. Patient is a resident at [facility] and at approximately 0315 this morning nursing staff noticed that patient had multiple ramirez to her left inner wrist and forearm area. Patient stated to them that she tried to cut herself with scissors. Staff contacted the on-call provider who then discussed situation with [facility] psychologist. States facility required that patient have medical clearance prior to being transported there. Patient will be evaluated here in the ER for appropriate medical clearance. After long discussion with patient, she often explanation of needing attention and not that she specifically try to kill herself. At this time patient appears depressed but communicative. Patient denies any chest pain, shortness of breath, nausea, vomiting, or any other trauma. Onset: Today, Sudden Onset Date: 09/16/18 Onset Time: 03:15 Location: Reports: Upper Extremity, Left Severity: Mild Improves with: Reports: None Worsens with: Reports: None Context: Reports: Other (Self-inflicted) Associated Symptoms: Reports: No Other Symptoms Upper Back Pain Score (Numeric/FACES): 5 - Related Data Allergies Allergy/AdvReac Type Severity Reaction Status Date / Time diphenhydramine Allergy Other Verified 09/16/18 08:58 [From Benadryl] oxycodone Allergy Cannot Verified 09/16/18 08:59 Remember contrast dye Allergy Cannot Uncoded 08/21/18 23:04 Remember Home Meds: Home Meds Acetaminophen 650 mg PO Q4HR PRN 08/22/18 [History] Ascorbate Calcium [Vitamin C] 500 mg PO DAILY 08/22/18 [History] Bisacodyl [Biscolax] 1,025.97 mg PO DAILY 08/22/18 [History] Cranberry 400 mg PO Q8HR 08/22/18 [History] Dextran 70/Hypromellose [Artificial Tears] 1 each OP DAILY 08/22/18 [History] Diclofenac Sodium [Voltaren 1% Gel] 1 applic TP QID 08/22/18 [History] Gabapentin [Neurontin] 1,200 mg PO BID 08/22/18 [History] Gabapentin [Neurontin] 800 mg PO BID 08/22/18 [History] LORazepam 0.25 mg PO BEDTIME 08/22/18 [History] LORazepam [Ativan] 0.5 mg PO Q8HR 08/22/18 [History] Methyl Salicylate/Menthol [Muscle Rub] 85 gm TP ASDIRECTED PRN 08/22/18 [History ] Methylcellulose [Fiber] 500 mg PO DAILY 08/22/18 [History] Nicotine Polacrilex [Nicorette] 4 mg BC Q6HR PRN 08/22/18 [History] Omeprazole 20 mg PO DAILY 08/22/18 [History] Ondansetron HCl [Zofran] 4 mg PO DAILY 08/22/18 [History] Sennosides [Senna] 25.8 mg PO DAILY 08/22/18 [History] Sertraline [Zoloft] 150 mg PO DAILY 08/22/18 [History] Zinc Oxide 56.7 gm TP WEEKLY 08/22/18 [History] buPROPion HCl [Wellbutrin Xl] 300 mg PO DAILY 08/22/18 [History] tiZANidine [Zanaflex] 4 mg PO Q8H 08/22/18 [History] Liraglutide [Victoza] 0.6 mg SQ DAILY 09/16/18 [History] fentaNYL [Duragesic] 75 mcg TD Q3D 09/16/18 [History] Past Medical History Gastrointestinal History: Reports: GERD, Hemorrhoids, Hepatitis, Other (See Below) Other Gastrointestinal History: neurogenic bowel, Hepatitis C Genitourinary History: Reports: Other (See Below) Other Genitourinary History: SP cath. neuromuscular dysfunction of bladder Musculoskeletal History: Reports: Other (See Below) Other Musculoskeletal History: paraplegia Neurological History: Reports: Other (See Below) Other Neuro History: Paraplegic Psychiatric History: Reports: ADHD, Anxiety, PTSD, Schizophrenia, Other (See Below) Other Psychiatric History: personality disorder Endocrine/Metabolic History: Reports: Diabetes, Type II, Obesity/BMI 30+ - Infectious Disease History Infectious Disease History: Reports: Hepatitis C - Past Surgical History Female Surgical History: Reports: Suprapubic Catheter Placement Social & Family History - Family History Family Medical History: Noncontributory : Reports: Renal Calculus (sister) Oncologic: Reports: Breast (maternal aunt), Prostate (maternal grandfather and maternal uncle) - Caffeine Use Caffeine Use: Reports: Coffee, Soda, Tea ED ROS GENERAL - Review of Systems Review Of Systems: ROS reveals no pertinent complaints other than HPI. Constitutional: Reports: No Symptoms HEENT: Reports: No Symptoms Respiratory: Reports: No Symptoms Cardiovascular: Reports: No Symptoms Endocrine: Reports: No Symptoms GI/Abdominal: Reports: No Symptoms : Reports: No Symptoms Musculoskeletal: Reports: No Symptoms Skin: Reports: Wound (Multiple superficial abrasions running the length of the forearm from elbow to wrist) Neurological: Reports: No Symptoms Psychiatric: Reports: Depression, Suicidal Ideation Hematologic/Lymphatic: Reports: No Symptoms Immunologic: Reports: No Symptoms ED EXAM, GENERAL - Physical Exam Exam: See Below Exam Limited By: No Limitations General Appearance: Alert, WD/WN, No Apparent Distress Eye Exam: Bilateral Eye: Normal Inspection Nose: Normal Inspection, Normal Mucosa, No Blood Throat/Mouth: Normal Inspection, Normal Oropharynx, No Airway Compromise Head: Atraumatic, Normocephalic Neck: Normal Inspection, Supple, Non-Tender, Full Range of Motion Respiratory/Chest: No Respiratory Distress, Lungs Clear, Normal Breath Sounds, No Accessory Muscle Use, Chest Non-Tender Cardiovascular: Regular Rate, Rhythm, No Murmur GI/Abdominal: Normal Bowel Sounds, Soft, Non-Tender, No Organomegaly, No Distention, No Abnormal Bruit, No Mass Back Exam: Normal Inspection. No: CVA Tenderness (L), CVA Tenderness (R) Extremities: Other (Multiple linear superficial abrasions of left inner forearm running from elbow to wrist. No subcutaneous involvement) Neurological: Alert, Oriented, Normal Cognition Psychiatric: Depressed Mood Skin Exam: Warm, Dry, Normal Color, No Rash, Wound/Incision (As above) Lymphatic: No Adenopathy Course - Vital Signs Last Recorded V/S: Last Vital Signs Temp 98.1 F 09/16/18 09:07 Pulse 77 09/16/18 09:07 Resp 16 09/16/18 09:07 BP 129/73 09/16/18 09:07 Pulse Ox 97 09/16/18 09:07 - Orders/Labs/Meds Orders: Active Orders 24 hr Category Date Time Status DRUG SCREEN, URINE [URCHEM] Stat Lab 09/16/18 08:52 Ordered IRON [REF] Stat Lab 09/16/18 09:00 Received UA W/SHALOM RFLX IF INDICATED [URIN] Stat Lab 09/16/18 08:51 Ordered Labs: Laboratory Tests 09/16/18 09/16/18 Range/Units 09:00 09:00 WBC 11.89 H (5.00-10.00) 10^3/uL RBC 4.37 (3.80-5.50) 10^6/uL Hgb 12.6 D (12.0-16.0) g/dL Hct 39.4 (37.0-47.0) % MCV 90.2 (82.0-92.0) fL MCH 28.8 (27.0-31.0) pg MCHC 32.0 (32.0-36.0) g/dL RDW 14.4 (11.5-14.5) % Plt Count 303 (150-400) 10^3/uL MPV 9.6 (7.4-10.4) fL Immature Gran % (Auto) 0.2 (0.0-5.0) % Neut % (Auto) 72.8 H (50.0-70.0) % Lymph % (Auto) 18.9 L (20.0-40.0) % [place] % (Auto) 6.8 (2.0-8.0) % Eos % (Auto) 1.0 (1.0-3.0) % Baso % (Auto) 0.3 (0.0-1.0) % Immature Gran # (Auto) 0.02 (0.00-0.50) 10^3/uL Neut # (Auto) 8.66 H (2.50-7.00) 10^3/uL Lymph # (Auto) 2.25 (1.00-4.00) 10^3/uL [place] # (Auto) 0.81 H (0.10-0.80) 10^3/uL Eos # (Auto) 0.12 (0.10-0.30) 10^3/uL Baso # (Auto) 0.03 (0.00-0.10) 10^3/uL Sodium 140 (136-145) mmol/L Potassium 4.2 (3.3-5.3) mmol/L Chloride 101 (98-115) mmol/L Carbon Dioxide 28.6 (21.0-32.0) mmol/L Anion Gap 14.6 (5-15) mmol/L BUN 9 (6-25) mg/dL Creatinine 0.84 (0.51-1.17) mg/dL Est Cr Clr Drug Dosing 89.81 mL/min Estimated GFR (MDRD) > 60 mL/min Glucose 143 H (75 - 99) mg/dL Calcium 9.2 (8.7-10.3) mg/dL Magnesium 1.9 (1.8-2.4) mg/dL Total Bilirubin 0.3 (0.2-1.0) mg/dL AST 24 (15-37) U/L ALT 21 (12-78) U/L Alkaline Phosphatase 48 (46-116) IU/L Total Protein 8.3 H (6.4-8.2) g/dL Albumin 3.51 (3.00-4.80) g/dL Ethyl Alcohol < 3 (NONE DETECTED) mg/dL - Re-Assessments/Exams Free Text/Narrative Re-Assessment/Exam: 09/16/18 10:16 Patient afebrile, vital signs stable, conversing well, in no distress, mood improved. Discussed case with Shirley Alcaraz, who is the [facility] provider documented on [facility] nursing chart that was initial involvement and initiated psychological evaluation per Dr. Brooks and made the decision for patient to be medically cleared through the emergency department. Further discussion with Shirley Alcaraz for [facility] to place patient because [facility] refused. Also discussed case in length with Yanna Llamas and Helga nurse regional loss prevention manager. The recommendation was to medically clear patient and return patient to [facility] for one-on-one nursing care and decision for patient to be transferred to psych facility when available. Free Text/Narrative Re-Assessment/Exam: 09/16/18 10:24 Patient is medically cleared for transfer Departure - Departure Time of Disposition: 10:27 Disposition: DC/Tfer to Medicaid Nur Fac 64 Condition: Good Clinical Impression: Self-inflicted injury Depression Qualifiers: Depression Type: major depressive disorder Major depression recurrence: recurrent Active/Remission status: remission status unspecified Qualified Code(s ): F33.9 - Major depressive disorder, recurrent, unspecified Urinary tract infection Qualifiers: Urinary tract infection type: catheter-associated UTI Indwelling urinary catheter type: indwelling urethral catheter Encounter type: initial encounter Qualified Code(s): T83.511A - Infection and inflammatory reaction due to indwelling urethral catheter, initial encounter; N39.0 - Urinary tract infection , site not specified - Discharge Information Instructions: Supporting Someone With Self-Harming Behavior, Self-Destructive Behavior, Major Depressive Disorder, Adult, [id number] Referrals: Michelle Marcelo MD [Primary Care Provider] - Forms: ED Department Discharge Additional Instructions: Psychological placement determined by [facility] providers - My Orders Last 24 Hours: My Active Orders 09/16/18 08:51 UA W/SHALOM RFLX IF INDICATED [URIN] Stat 09/16/18 08:52 DRUG SCREEN, URINE [URCHEM] Stat 09/16/18 09:00 IRON [REF] Stat - Assessment/Plan Last 24 Hours: My Active Orders 09/16/18 08:51 UA W/SHALOM RFLX IF INDICATED [URIN] Stat 09/16/18 08:52 DRUG SCREEN, URINE [URCHEM] Stat 09/16/18 09:00 IRON [REF] Stat Assessment:: Self-inflicted wound Plan: Return to [facility]
[2018-09-16 09:31] LABS: ANION GAP 14.6 mmol/L (5-15); CHLORIDE,CL 101 mmol/L (98-115); SODIUM,NA 140 mmol/L (136-145)
[2018-09-16 10:38] LABS: BARBITURATE SCREEN,URINE NEGATIVE (NEGATIVE); BENZODIAZEPINES SCREEN,URINE POSITIVE (NEGATIVE)
[2018-09-16 10:39] LABS: TCA SCREEN,URINE NEGATIVE (NEGATIVE); THC SCREEN,URINE 50 NG/ML NEGATIVE (NEGATIVE)
[2018-09-16] MEDS ORDERED: cefTRIAXone 1 GM Vial IM ONE (10:53)
[2018-09-16] MEDS ORDERED: Lidocaine 1% 20 ML MDV ONE (11:02)
[2018-09-16] MEDS ORDERED: Lidocaine 1% 20 ML MDV INJECT ONE (11:12)
== END 2018-09-16 15:50 ==
LOC: KA.ED 08:45
DX: S50.812A Abrasion of left forearm, initial encounter (principal); F33.9 Major depressive disorder, recurrent, unspecified; T83.511A Infection and inflammatory reaction due to indwelling urethral catheter, initial encounter; K21.9 Gastro-esophageal reflux disease without esophagitis; Z88.8 Allergy status to other drugs, medicaments and biological substances; Z79.899 Other long term (current) drug therapy; X78.9XXA Intentional self-harm by unspecified sharp object, initial encounter
CPT/HCPCS: 36415; 80053; 80305-QW; 81001; 83540; 83735; 85025; 99284; G0480; J0696; J2001